=== PATIENT | female | born 1940 | race African-American/Black ===

== ENCOUNTER → 2017-01-05 | Outpatient (CLI) | payer MEDICARE ==
[2016-10-06 14:23] VITALS: BP 149/84
[~2017-01-05] MED LIST: ARAVA20 MG PO; ASCO100065 PO; CHOL500016 PO; CHRO400T6 PO; CYCL10TA2 PO; DOCU-27 PO; FERR325T58 PO; FOLI1TAB16 PO; GLIM1TAB2 PO; HYDR-2666 PO; HYDR-963 PO; LINA5TAB PO; LOSA25TA4 PO; METF10002 PO; OMEG300C PO; OXYC10TA PO; OXYC1TAB7 PO; vitamin b 6 PO
--- NOTE | 2017-01-05 16:41 | RAD ---
Right hip, 2 views, 01/05/2017: History: Severe pain No fracture or dislocation is identified. There is only minimal narrowing of the hip joint. The periarticular soft tissues are unremarkable. IMPRESSION: No acute right hip abnormality is detected.
== END | disposition home or self-care (01) ==
LOC: RAD 11:02
PROVIDERS: ATTEND Family Medicine
DX: M25.551 Pain in right hip (principal)
CPT/HCPCS: 73502

== ENCOUNTER → 2017-01-12 | Outpatient (CLI) | payer MEDICARE ==
[2016-10-06 14:23] VITALS: BP 149/84
[~2017-01-12] MED LIST changes: -ARAVA20 MG PO; +GADOBUTROL 7.5 MMOL/7.5 ML VIAL IV ONE; +LEFL20TA PO
--- NOTE | 2017-01-12 14:36 | KCIC ---
MR LUMBAR SPINE HISTORY:Reason For StudyReason: LUMBAR STENOSIS AND BACK PAIN / Spl. Instructions: Prev MR/CT on PACS / History: Prev surgery x3. Bilateral leg pain, chronic LBP. 6cc Gadavist COMPARISON: June 17, 2016 Technique: Sagittal T2, sagittal STIR, and sagittal T1-weighted images were obtained. Additional axial T1 and T2 weighted imaging was also performed. Post contrast T1 weighted images were performed after intravenous administration of gadolinium based contrast. FINDINGS: There has been extension of the posterior spinal fusion which now fuses L3-L5 previously L4-L5. There is no compression fracture or deformity. Bone marrow signal is normal apart from sclerotic endplate changes at L4-L5. The conus terminates normally at the level of L2. Visualized intra-abdominal contents demonstrates possible left nephrolithiasis. No abnormal intrathecal enhancement. At L5-S1 there are small facet joint effusions. The foramina are obscured by blooming artifact from the metallic pedicle screws but there is no evidence for high-grade stenosis. There is moderate right lateral recess stenosis from the facet hypertrophy. At L4-L5 there is advanced disc height loss and grade 1 anterolisthesis. There is a broad-based disc protrusion. The neural foramina arch cured by metallic artifact from the pedicle screws but there does appear to be bilateral neural foraminal stenosis. Correlate for possible L4 radiculopathy symptoms. At L3-L4 there is a broad-based disc protrusion causing mild central spinal stenosis. At L2-L3 there is moderate to severe central spinal stenosis from the combination of bilateral advanced facet arthropathy and broad-based disc bulge. Impression: - There has been extension the posterior spinal fusion now extending from L3-L5. - There is multilevel degenerative disc and facet disease causing varying degrees of central spinal and neural foraminal stenosis. This is most pronounced at L2-L3 where there is moderate to severe central spinal stenosis from a broad-based disc bulge and advanced facet arthropathy. Details per level as above. Electronically signed by: Bruno Christensen (Jan 12, 2017 14:35:21)
== END | disposition home or self-care (01) ==
LOC: KCIC MRI 11:36
PROVIDERS: ATTEND Neurological Surgery
DX: M51.26 Other intervertebral disc displacement, lumbar region (principal); M51.36 Other intervertebral disc degeneration, lumbar region; M46.96 Unspecified inflammatory spondylopathy, lumbar region; M12.88 Other specific arthropathies, not elsewhere classified, other specified site; Z98.1 Arthrodesis status
CPT/HCPCS: 72158; 82565; A9585

== ENCOUNTER → 2017-01-19 | Outpatient (CLI) | payer MEDICARE ==
[2016-10-06 14:23] VITALS: BP 149/84
[~2017-01-19] MED LIST changes: +ARAVA20 MG PO; +BACITRACIN 50,000 UNIT in IV NORMAL SALINE 1000ML BAG 1,000 ML IRR ONE; -GADOBUTROL 7.5 MMOL/7.5 ML VIAL IV ONE; -LEFL20TA PO
[2017-01-19 11:10] LABS: BASO # 0.1 x10^3/uL (0.0-0.2); BASO % 1 % (0-3); EOS % 2 % (0-3); HEMATOCRIT 28.5 % (36.0-47.0); HEMOGLOBIN 8.6 g/dL (12.0-15.5); LYMPH # 2.1 x10^3/uL (1.0-4.8); LYMPH % 31 % (24-48); MEAN CORPUSCULAR HEMOGLOBIN 25 pg (25-35); MEAN CORPUSCULAR HGB CONC 30 g/dL (31-37); MEAN CORPUSCULAR VOLUME 83 fL (79-100); MONO % 5 % (0-9); NEUT % 60 % (31-73); PLATELET COUNT 432 x10^3/uL (140-400); RED BLOOD COUNT 3.44 x10^6/uL (3.50-5.40); RED CELL DISTRIBUTION WIDTH 25.6 % (11.5-14.5); WHITE BLOOD COUNT 6.7 x10^3/uL (4.0-11.0)
[2017-01-19 11:28] LABS: ALBUMIN/GLOBULIN RATIO 0.6 (1.0-1.7); CALCIUM 9.8 mg/dL (8.5-10.1); CREATININE 0.8 mg/dL (0.6-1.0); GFR 84.8; TOTAL BILIRUBIN 0.2 mg/dL (0.2-1.0); TOTAL PROTEIN 7.8 g/dL (6.4-8.2)
[2017-01-19 13:40] LABS: PLT ESTIMATE INCREASED (ADEQUATE)
[2017-01-19 13:46] LABS: ANISOCYTOSIS MARKED
== END | disposition home or self-care (01) ==
LOC: SURGPAT 10:08
PROVIDERS: ATTEND Neurological Surgery
DX: Z01.812 Encounter for preprocedural laboratory examination (principal)
CPT/HCPCS: 36415; 80053; 85007; 85027; 87641

== ENCOUNTER 2017-01-20 07:07 | Inpatient (IN) | payer MEDICARE ==
[2017-01-20] VITALS (10 sets, daily range): BP systolic 96–129; BP diastolic 54–75
[~2017-01-20] VITALS: Ht 162.6 cm; Wt 71.2 kg
[~2017-01-20 07:07] MED LIST changes: -BACITRACIN 50,000 UNIT in IV NORMAL SALINE 1000ML BAG 1,000 ML IRR ONE; +BUPIVAC MPF-EPI 0.5%-1:200000 30 ML VIAL. ONE; +FENTANYL PF 100 MCG/2 ML VIAL. IV PRN; +GELATIN SPONGE SIZE 100. ONE; +IV RINGERS,LACTATED 1000ML 1,000 ML IV SCH; +KETOROLAC 60 MG/2 ML SYRINGE FOR OR. ONE; +LIDOCAINE 1% 1 ML SYRINGE. ID PRN; +ONDANSETRON PF 4 MG/2 ML VIAL. IV PRN; +PROCHLORPERAZINE 10 MG/2 ML VIAL. IV PRN; +THROMBIN 20,000 UNIT SPRAY.SYRN KIT TP ONE
[2017-01-20] MEDS ORDERED: DESFLURANE > 120 MINUTES IH ONE ×2 (07:55→10:46)
[2017-01-20] MEDS ORDERED: ONDANSETRON PF 4 MG/2 ML VIAL. ONE (07:55)
[2017-01-20] MEDS ORDERED: LIDOCAINE 2% 100 MG/5 ML DISP.SYRIN. ONE (07:55)
[2017-01-20] MEDS ORDERED: DEXAMETHASONE SOD PHOS 20 MG/5 ML VIAL. ONE (07:55)
[2017-01-20] MEDS ORDERED: MINERAL OIL/PETROLATUM,WHITE OPHTH OINT 3.5GM TUBE. ONE (07:55)
[2017-01-20] MEDS ORDERED: REMIFENTANIL 2 MG VIAL. IV ONE (07:55)
[2017-01-20] MEDS ORDERED: FENTANYL PF 100 MCG/2 ML VIAL. ONE (07:55)
[2017-01-20] MEDS ORDERED: 0.9 % SODIUM CHLORIDE 50 ML VIAL. IJ ONE (07:55)
[2017-01-20] MEDS ORDERED: PROPOFOL 20 ML IV ONE (07:55)
[2017-01-20] MEDS ORDERED: PROPOFOL 0 ML IV ONE (07:55)
[2017-01-20] MEDS ORDERED: ROCURONIUM 50 MG/5 ML VIAL. ONE (07:56)
[2017-01-20] MEDS ORDERED: PHENYLEPHRINE in 0.9% NACL PF 1 MG/10 ML DISP.SYRIN. IV ONE ×2 (09:37→10:10)
[2017-01-20] MEDS ORDERED: BACITRACIN 50,000 UNIT in IV NORMAL SALINE 1000ML BAG 1,000 ML IRR ONE (10:00)
[2017-01-20] MEDS ORDERED: EPHEDRINE PF IN SALINE 50 MG/5 ML DISP.SYRIN. IV ONE (10:26)
[2017-01-20] MEDS ORDERED: PROPOFOL 50 ML IV ONE (10:51)
--- NOTE | 2017-01-20 11:48 | HP ---
ADMIT DATE: 01/20/2017 HISTORY OF PRESENT ILLNESS: The patient is a pleasant 76-year-old who has undergone 3 surgeries in her lumbar spine. Laminectomy at L3-L4, laminectomy and fusion L4-L5 and an extension of her fusion from L3-L5. After the surgery, she did well for a time and then she worsened. Currently, she is experiencing very significant lower back pain on the right side which she says is a stabbing pain. On the left side and her lower back, she notes sharp discomfort. She notices pain which radiates into the anterior thighs and says it feels like her thighs are ____ when she stands and walks. She rates her pain as 10/10 with standing and walking. Lying and sitting gives her significant relief. She is taking oxycodone and Flexeril to help control her pain. PAST MEDICAL HISTORY: Diabetes, kidney stones, shingles. PAST SURGICAL HISTORY: Lumbar laminectomy L3-L4, L4-L5 ____ 2012; 2010 a lumbar laminectomy L3-L4, L4-L5; February 2016, lumbar fusion L4-L5; July 2016, removal of hardware L4-L5, lumbar laminectomy L3-L4, placement of hardware L3 through L5. FAMILY HISTORY: No family history noted. SOCIAL HISTORY: She is single. Denies substance abuse. Denies tobacco use. ALLERGIES: TO IV CONTRAST DYE AND CODEINE. CURRENT MEDICATIONS: Oxycodone, cyclobenzaprine, Valium, glimepiride, metformin, Arava, vitamin C, iron, fish oil, vitamin B6. REVIEW OF SYSTEMS: A 12-point review of systems was obtained and is noncontributory except for that mentioned above. PHYSICAL EXAMINATION: NEUROSURGERY EXAMINATION: GENERAL APPEARANCE: Alert, pleasant, in no acute distress. HEENT: Normocephalic, atraumatic. SKIN: Warm and dry. MUSCULOSKELETAL: Lumbar paraspinal muscle bulk is normal, restricted range of motion of lumbar spine, [id number] tenderness of lower lumbar spine with palpation, normal range of motion of the lower extremities bilaterally. EXTREMITIES: No clubbing, cyanosis, or edema. NEUROLOGIC: Alert and oriented x 3, normal recent and remote memory, strength 5/5 in bilateral lower extremities, sensory was intact to light touch in the lower extremities bilaterally except for decrease in the anterior thighs bilaterally, reflexes were absent at the knees and ankles, negative straight leg raising bilaterally, forward stooped gait. IMAGING REVIEWED: I reviewed a lumbar MRI scan done recently. There appears to have been progression of the lumbar spinal stenosis at L2-L3. She is developing increasing stenosis at L2-L3. She does have excellent alignment at this level. PLAN: At this point, I think the most prudent course would be to perform a laminectomy at this level. I explained in the future she may require an instrumented fusion. I discussed surgery with her in detail. I spoke about the expected postoperative course. She would like to go ahead. We will make the arrangements. We did also make some adjustments to her pain medications because her pain remains severe. TAYLOR SIERRA MD DR: ALBERT/ayleen JOB#: [id number] / [id number]
[2017-01-20] MEDS ORDERED: 0.9 % SODIUM CHLORIDE 10 ML DISP.SYRIN. IV PRN (12:15)
[2017-01-20] MEDS ORDERED: DIPHENHYDRAMINE 50 MG/ML VIAL IV PRN (12:15)
[2017-01-20] MEDS ORDERED: ZOLPIDEM 5 MG TABLET. PO PRN (12:15)
[2017-01-20] MEDS ORDERED: ACETAMINOPHEN 325 MG TABLET. PO PRN (12:15)
[2017-01-20] MEDS ORDERED: CYCLOBENZAPRINE 10 MG TABLET. PO PRN (12:15)
[2017-01-20] MEDS ORDERED: NALOXONE 0.4 MG/ML VIAL. IV PRN (12:15)
[2017-01-20] MEDS ORDERED: DIPHENHYDRAMINE HCL 25 MG CAPSULE PO PRN (12:15)
[2017-01-20] MEDS: FENTANYL PF 100 MCG/2 ML VIAL. IV PRN ×6 (12:32→18:42)
[2017-01-20] MEDS: MORPHINE SULFATE 2 MG/ML DISP.SYRIN. IV PRN ×2 (12:53→13:02)
[2017-01-20] MEDS: HYDROMORPHONE 2 MG/ML VIAL. IV PRN ×2 (13:13→13:24)
[2017-01-20] MEDS: CEFAZOLIN SODIUM 1 GM in IV NORMAL SALINE 50ML 50 ML IV SCH ×2 (14:31→21:09)
[2017-01-20] MEDS ORDERED: POTASSIUM CL 20MEQ-0.45% NACL 1,000 ML IV SCH (15:00)
[2017-01-20] MEDS: METFORMIN 1,000 MG TABLET PO SCH (17:00)
[2017-01-20] MEDS: GLIMEPIRIDE 2 MG TABLET PO SCH (17:00)
[2017-01-20] MEDS: MORPHINE ER 30 MG TABLET.ER PO SCH ×2 (17:30→21:11)
[2017-01-20] MEDS: DOCUSATE SODIUM 100 MG CAPSULE PO SCH (21:09)
[2017-01-21] MEDS: FENTANYL PF 100 MCG/2 ML VIAL. IV PRN ×8 (00:11→21:22)
[2017-01-21 03:00] VITALS: BP 118/55
[2017-01-21] MEDS: CEFAZOLIN SODIUM 1 GM in IV NORMAL SALINE 50ML 50 ML IV SCH (05:51)
[2017-01-21] MEDS: OXYCODONE IR 5 MG TABLET. PO PRN ×3 (05:59→17:15)
[2017-01-21 07:00] VITALS: BP 99/79
[2017-01-21] MEDS: LEFLUNOMIDE 10 MG TABLET. PO SCH (08:37)
[2017-01-21] MEDS: OMEGA-3 FATTY ACIDS/FISH OIL 1,000 MG CAPSULE. PO SCH (08:37)
[2017-01-21] MEDS: GLIMEPIRIDE 2 MG TABLET PO SCH ×2 (08:37→17:15)
[2017-01-21] MEDS: FERROUS SULFATE 325 MG TABLET PO SCH (08:38)
[2017-01-21] MEDS: MORPHINE ER 30 MG TABLET.ER PO SCH ×2 (08:38→21:21)
[2017-01-21] MEDS: FOLIC ACID 1 MG TABLET PO SCH (08:38)
[2017-01-21] MEDS: METFORMIN 1,000 MG TABLET PO SCH ×2 (08:38→17:15)
[2017-01-21] MEDS: ASCORBIC ACID 500 MG TABLET PO SCH (08:38)
[2017-01-21] MEDS: DOCUSATE SODIUM 100 MG CAPSULE PO SCH ×2 (08:38→21:21)
[2017-01-21] MEDS: CHOLECALCIFEROL (VITAMIN D3) 1,000 UNIT TABLET PO SCH (08:39)
[2017-01-21] MEDS ORDERED: CHROMIUM AMINO ACID CHELATE PO SCH (09:00)
[2017-01-21] MEDS: LOSARTAN POTASSIUM 25 MG TABLET. PO SCH (09:00)
[2017-01-21 11:00] VITALS: BP 132/69
[2017-01-21 15:00] VITALS: BP 137/69
[2017-01-21 19:00] VITALS: BP 150/67
--- NOTE | 2017-01-21 22:55 | PDOC ---
PROGRESS NOTES Subjective Subjective patient seen at 1300 POD #1 leg pain improved, c/o incisional pain Objective Objective Vital Signs Date Time Temp Pulse Resp B/P Pulse Ox O2 Delivery O2 Flow Rate FiO2 01/21/17 19:00 98.5 86 18 150/67 95 Room Air 98.5 01/21/17 18:15 2.0 Intake and Output 01/21/17 07:00 Intake Total 2360 ml Output Total 650 ml Balance 1710 ml Intake Oral 260 ml IV Total 2100 ml Output Urine Total 600 ml Estimated Blood Loss 50 ml # Voids 2 Physical Exam General: Alert, Oriented X3, Cooperative Neuro: Other (MOSS, LE strength normal) Skin: Other (dressing intact, dry, flat) Assessment Assessment Problems Medical Problems: (1) Lumbar stenosis Status: Acute Plan Plan of Care encouraged increased activity as tolerated continue pain medication PT Comment Review of Relevant I have reviewed the following items franco (where applicable) has been applied. Labs Laboratory Tests Test 01/20/17 08:00 01/20/17 12:26 Glucose (Fingerstick) 99mg/dL (70-99) 177mg/dL (70-99) Medications Current Medications Ondansetron HCl (Zofran) 4 mg PRN Q6HRS PRN IV Nausea; Start 01/20/17 at 07:00; Stop 01/20/17 at 19:00; Status DC Fentanyl Citrate (Fentanyl 2ml Vial) 25 mcg PRN Q5MIN PRN IV MILD PAIN; Start 01/20/17 at 07:00; Stop 01/20/17 at 19:00; Status DC Fentanyl Citrate (Fentanyl 2ml Vial) 50 mcg PRN Q5MIN PRN IV MODERATE PAIN Last administered on 01/20/17 14:30; Start 01/20/17 at 07:00; Stop 01/20/17 at 19: 00; Status DC Morphine Sulfate 1 mg 1 mg PRN Q10MIN PRN IV SEVERE PAIN Last administered on 13:02; Start 01/20/17 at 07:00; Stop 01/20/17 at 19:00; Status DC Lactated Ringer's (Iv Lactated Ringers) 1,000 ml @ 0 mls/hr Q0M IV ; Start 01/20 at 07:00; Stop 01/20/17 at 18:59; Status DC Lidocaine HCl 2 ml 1X PRN PRN ID IV START Last administered on 01/20/17 08:10; Start 01/20/17 at 07:00; Stop 01/20/17 at 19:00; Status DC Hydromorphone HCl (Dilaudid) 0.5 mg PRN Q10MIN PRN IV SEVERE PAIN, Second choice Last administered on 01/20/17 13:24; Start 01/20/17 at 07:00; Stop at 19:00; Status DC Prochlorperazine Edisylate (Compazine) 5 mg PACU PRN PRN IV NAUSEA Last administered on 01/20/17 12:52; Start 01/20/17 at 07:00; Stop 01/20/17 at 19:00; Status DC Bupivacaine HCl/ Epinephrine Bitart (Sensorcain-Mpf Epi 0.5%-1:[id number]) 30 ml STK -MED ONCE .ROUTE Last administered on 01/20/17 09:36; Start 01/20/17 at 06:59; Stop 01/20/17 at 07:00; Status DC Gelatin (Gelfoam Size 100) 1 each STK-MED ONCE .ROUTE Last administered on 01/20 09:36; Start 01/20/17 at 06:59; Stop 01/20/17 at 07:00; Status DC Ketorolac Tromethamine (Toradol For Or Only) 60 mg STK-MED ONCE .ROUTE Last administered on 01/20/17 09:36; Start 01/20/17 at 06:59; Stop 01/20/17 at 07:00; Status DC Thrombin 20,000 unit STK-MED ONCE TP Last administered on 01/20/17 09:36; Start 01/20/17 at 06:59; Stop 01/20/17 at 07:00; Status DC Dexamethasone Sodium Phosphate (Decadron) 20 mg STK-MED ONCE .ROUTE ; Start 01/20 at 07:55; Stop 01/20/17 at 07:56; Status DC Ondansetron HCl 4 mg 4 mg STK-MED ONCE .ROUTE ; Start 01/20/17 at 07:55; Stop 01/20/17 at 07:56; Status DC Propofol 0 ml @ As Directed STK-MED ONCE IV ; Start 01/20/17 at 07:55; Stop at 07:56; Status DC Propofol (Diprivan) 20 ml @ As Directed STK-MED ONCE IV ; Start 01/20/17 at 07:55 ; Stop 01/20/17 at 07:56; Status DC Lidocaine HCl 100 mg STK-MED ONCE .ROUTE ; Start 01/20/17 at 07:55; Stop 01/20/17 at 07:56; Status DC Multi-Ingred Cream/Lotion/Oil/ Oint (Artificial Tears Eye Oint) 7 neno STK-MED ONCE .ROUTE ; Start 01/20/17 at 07:55; Stop 01/20/17 at 07:56; Status DC Sodium Chloride (Sodium Chloride) 50 ml STK-MED ONCE IJ ; Start 01/20/17 at 07:55 ; Stop 01/20/17 at 07:56; Status DC Desflurane (Suprane) 90 ml STK-MED ONCE IH ; Start 01/20/17 at 07:55; Stop at 07:56; Status DC Fentanyl Citrate (Fentanyl 2ml Vial) 100 mcg STK-MED ONCE .ROUTE ; Start at 07:55; Stop 01/20/17 at 07:56; Status DC Remifentanil HCl (Ultiva) 2 mg STK-MED ONCE IV ; Start 01/20/17 at 07:55; Stop at 07:56; Status DC Rocuronium Banks (Zemuron) 50 mg STK-MED ONCE .ROUTE ; Start 01/20/17 at 07:56 ; Stop 01/20/17 at 07:57; Status DC Phenylephrine HCl 1 mg STK-MED ONCE IV ; Start 01/20/17 at 09:37; Stop 01/20/17 at 09:38; Status DC Phenylephrine HCl 1 mg 1 mg STK-MED ONCE IV ; Start 01/20/17 at 10:10; Stop at 10:11; Status DC Bacitracin/Sodium Chloride (Iv Sodium Chloride 0.9% 1000ml Bag) 1,000 ml @ 1, 000 mls/hr 1X PERIOP ONCE IRR Last administered on 01/20/17t 09:36; Start at 10:00; Stop 01/20/17 at 10:59; Status DC Ephedrine Sulfate 50 mg STK-MED ONCE IV ; Start 01/20/17 at 10:26; Stop 01/20/17 at 10:27; Status DC Desflurane 90 ml 90 ml STK-MED ONCE IH ; Start 01/20/17 at 10:46; Stop 01/20/17 at 10:47; Status DC Propofol (Diprivan) 50 ml @ As Directed STK-MED ONCE IV ; Start 01/20/17 at 10:51 ; Stop 01/20/17 at 10:52; Status DC Acetaminophen (Tylenol) 650 mg PRN Q6HRS PRN PO MILD PAIN / TEMP; Start at 12:15 Diphenhydramine HCl (Benadryl) 25 mg PRN Q6HRS PRN PO ITCHING; Start 01/20/17 at 12:15 Diphenhydramine HCl (Benadryl) 25 mg PRN Q6HRS PRN IV ITCHING; Start 01/20/17 at 12:15 Zolpidem Tartrate (Ambien) 5 mg PRN QHS PRN PO INSOMNIA, MAY REPEAT IN 1HR; Start 01/20/17 at 12:15 Naloxone HCl (Narcan) 0.1 mg PRN Q2MIN PRN IV ADMIN; Start 01/20/17 at 12:15 Sodium Chloride 3 ml 3 ml QSHIFT PRN IV AFTER MEDS AND BLOOD DRAWS; Start at 12:15 Potassium Chloride/Sodium Chloride 1,000 ml @ 75 mls/hr [id number] IV Last administered on 01/20/17 14:31; Start 01/20/17 at 15:00; Stop 01/21/17 at 01:13; Status DC Cefazolin Sodium/ Sodium Chloride (Ancef/Iv Sodium Chloride 0.9% 50ml) 50 ml @ 100 mls/hr Q8H IV Last administered on 01/21/17 05:51; Start 01/20/17 at 14:00; Stop 01/21/17 at 06:29; Status DC Fentanyl Citrate (Fentanyl 2ml Vial) 50 mcg PRN Q1HR PRN IV PAIN Last administered on 01/21/17 21:22; Start 01/20/17 at 12:15 Cyclobenzaprine HCl (Flexeril) 10 mg PRN TID PRN PO MUSCLE SPASMS; Start at 12:15 Docusate Sodium (Colace) 100 mg BID PO Last administered on 01/21/17 21:21; Start 01/20/17 at 21:00 Ferrous Sulfate (Feosol) 325 mg DAILY PO Last administered on 01/21/17 08:38; Start 01/21/17 at 09:00 Folic Acid (Folic Acid) 0.5 mg DAILY PO Last administered on 01/21/17 08:38; Start 01/21/17 at 09:00 Leflunomide (Arava) 20 mg DAILY PO Last administered on 01/21/17 08:37; Start 01/21/17 at 09:00 Losartan Potassium (Cozaar) 25 mg DAILY PO Last administered on 01/21/17 09:00 ; Start 01/21/17 at 09:00 Metformin HCl (Glucophage) 1,000 mg BIDWMEALS PO Last administered on 01/21/17 17:15; Start 01/20/17 at 17:00 Ascorbic Acid (Vitamin C) 1,000 mg DAILY PO Last administered on 01/21/17 08:38 ; Start 01/21/17 at 09:00 Vitamin D (Vitamin D3) 2,000 unit DAILY PO Last administered on 01/21/17 08:39 ; Start 01/21/17 at 09:00 Non-Formulary Medication 1,000 mcg DAILY PO SUPPLEMENT; Start 01/21/17 at 09:00; Status UNV Glimepiride (Amaryl) 2 mg BIDWMEALS PO Last administered on 01/21/17 17:15; Start 01/20/17 at 17:00 Fish Oil (Fish Oil) 1,000 mg DAILY PO Last administered on 01/21/17 08:37; Start 01/21/17 at 09:00 Oxycodone HCl (Roxicodone) 10 mg PRN Q4HRS PRN PO PAIN Last administered on 01/21 17:15; Start 01/20/17 at 13:15 Morphine Sulfate (Ms Contin) 30 mg BID PO Last administered on 01/21/17 21:21; Start 01/20/17 at 17:30 Active Scripts Active Oxycodone Hcl 10 Mg Tablet 10 Mg PO Q4-6HRS PRN Colace (Docusate Sodium) 100 Mg Capsule 100 Mg PO BID Cyclobenzaprine Hcl 10 Mg Tablet 10 Mg PO PRN TID PRN Reported Vitamin C (Ascorbic Acid) 1,000 Mg Tab.chew 1,000 Mg PO DAILY Not taken while in hosp. May resume at home as directed. Iron Supplement (Ferrous Sulfate) 325 Mg Tablet 65 Mg PO DAILY LAST DOSE THIS AM NEXT DOSE TOMORROW AM Vitamin D3 (Cholecalciferol (Vitamin D3)) 5,000 Unit Tablet 2,000 Mg PO DAILY Not taken while in hosp. May resume ast home as directed. Folic Acid 1 Mg Tablet 400 Mg PO DAILY LAST DOSE THIS AM NEXT DOSE TOMORROW AM Chromium (Chromium Amino Acid Chelate) 400 Mcg Tablet 1,000 Mcg PO DAILY Not taken while in hosp. May resume at home as directed. [vitamin b 6] 1,000 Mg PO PRN Not given while in hosp. May resume at home as directed. MA Y RESUME WHEN READY Fish Oil ([place]-3 Fatty Acids) 300 Mg Capsule 1,200 Mg PO DAILY NOT GIVEN IN THE HOSPITAL MAY RESUME WHEN HOME DIRECTED Glimepiride 1 Mg Tablet 2 Mg PO BID LAST DOSE GIVEN: DATE:08-19-16 TIME:7:30 a.m. NEXT DOSE DUE: DATE:08-19-16 TIME:6:30 p.m. Metformin Hcl 1,000 Mg Tablet 1,000 Mg PO BID LAST DOSE GIVEN: DATE:08-19-16 TIME:8:30 a.m. NEXT DOSE DUE: DATE:08-19-16 TIME:5:00 p.m. Arava (Leflunomide) 20 Mg Tablet 20 Mg PO DAILY LAST DOSE THIS AM NEXT DOSE TOMORROW AM Losartan Potassium 25 Mg Tablet 25 Mg PO DAILY Not taken in hosp. due to low blood pressure may resume at home as directed. Vitals/I & O Vital Sign - Last 24 Hours 01/20/17 01/21/17 01/21/17 01/21/17 23:41 00:11 03:00 03:08 Temp 98.1 97.7 98.1 97.7 Pulse 84 79 Resp 18 20 B/P 129/75 118/55 Pulse Ox 99 98 O2 Delivery Nasal Cannula Nasal Cannula Nasal Cannula Nasal Cannula O2 Flow Rate 2.0 2.0 301/21/17 01/21/17 01/21/17 05:52 05:59 07:00 08:00 Temp 98.1 98.1 Pulse 78 Resp 18 B/P 99/79 Pulse Ox 100 O2 Delivery Nasal Cannula Nasal Cannula Room Air Nasal Cannula O2 Flow Rate 2.0 2.0 01/21/17 01/21/17 01/21/17 01/21/17 08:38 08:40 09:00 09:58 Pulse 81 Resp 18 16 B/P 132/64 Pulse Ox 100 100 100 O2 Delivery Nasal Cannula Nasal Cannula Nasal Cannula O2 Flow Rate 2.0 2.0 2.0 01/21/17 01/21/17 01/21/17 01/21/17 10:44 11:00 12:38 13:53 Temp 98.0 98.0 Pulse 82 Resp 16 18 16 18 B/P 132/69 Pulse Ox 100 96 96 96 O2 Delivery Nasal Cannula Nasal Cannula Nasal Cannula Room Air O2 Flow Rate 2.0 2.0 2.0 2.0 01/21/17 01/21/17 01/21/17 01/21/17 15:00 17:15 17:18 17:48 Temp 98.6 98.6 Pulse 90 Resp 18 16 16 16 B/P 137/69 Pulse Ox 95 95 95 95 O2 Delivery Room Air Nasal Cannula Nasal Cannula Nasal Cannula O2 Flow Rate 2.0 2.0 2.0 01/21/17 01/21/17 18:15 19:00 Temp 98.5 98.5 Pulse 86 Resp 16 18 B/P 150/67 Pulse Ox 95 95 O2 Delivery Nasal Cannula Room Air O2 Flow Rate 2.0 Intake and Output 01/20/17 01/20/17 01/21/17 15:00 23:00 07:00 Intake Total 1800 ml 350 ml 210 ml Output Total 50 ml 100 ml 500 ml Balance 1750 ml 250 ml -290 ml TAYLOR SIERRA MD Jan 21, 2017 22:55
[2017-01-21 23:00] VITALS: BP 136/67
[2017-01-22] MEDS: FENTANYL PF 100 MCG/2 ML VIAL. IV PRN ×3 (01:35→09:11)
[2017-01-22 03:00] VITALS: BP 141/63
[2017-01-22 07:00] VITALS: BP 129/64
[2017-01-22] MEDS: DOCUSATE SODIUM 100 MG CAPSULE PO SCH (09:00)
[2017-01-22] MEDS: CHOLECALCIFEROL (VITAMIN D3) 1,000 UNIT TABLET PO SCH (09:01)
[2017-01-22] MEDS: LOSARTAN POTASSIUM 25 MG TABLET. PO SCH (09:02)
[2017-01-22] MEDS: GLIMEPIRIDE 2 MG TABLET PO SCH (09:02)
[2017-01-22] MEDS: OMEGA-3 FATTY ACIDS/FISH OIL 1,000 MG CAPSULE. PO SCH (09:02)
[2017-01-22] MEDS: LEFLUNOMIDE 10 MG TABLET. PO SCH (09:02)
[2017-01-22] MEDS: ASCORBIC ACID 500 MG TABLET PO SCH (09:02)
[2017-01-22] MEDS: METFORMIN 1,000 MG TABLET PO SCH (09:02)
[2017-01-22] MEDS: MORPHINE ER 30 MG TABLET.ER PO SCH (09:03)
[2017-01-22] MEDS: FOLIC ACID 1 MG TABLET PO SCH (09:03)
[2017-01-22] MEDS: FERROUS SULFATE 325 MG TABLET PO SCH (09:03)
[2017-01-22 11:00] VITALS: BP 150/76
--- NOTE | 2017-01-22 11:56 | DISCH ---
DISCHARGE INSTRUCTIONS Condition on Discharge Condition on Discharge: Stable Activity After Discharge Activity Instructions for Disc: Activity as tolerated, Avoid exertion Bathing Instructions: Shower-keep dressing dry Lifting Instructions after Dis: No heavy lifting, No pulling or pushing, Do not lift >10 pounds Exercise Instruction after Dis: Walk 10 min, 3 x per day Driving Instructions after Dis: No driving for 2 weeks Diet after Discharge Additional Diet Restrictions: resume home diet Wound Incision Care Wound/Incision Care: Ice to area for comfort Other wound/incision instructi: may remove dressing when dry then may shower- no soaking Contacting the [facility] after DC Call your doctor for: Concerns you may have Follow-Up Follow up with: Dr. Sierra in 2 weeks [phone] TAYLOR SIERRA MD Jan 22, 2017 11:56
--- NOTE | 2017-01-22 12:05 | PDOC ---
PROGRESS NOTES Subjective Subjective back pain when up wants to go home Objective Objective Vital Signs Date Time Temp Pulse Resp B/P Pulse Ox O2 Delivery O2 Flow Rate FiO2 01/22/17 11:00 98.3 89 16 150/76 99 Room Air 98.3 01/22/17 08:00 2.0 Intake and Output 01/22/17 07:00 Intake Total 200 ml Output Total 2450 ml Balance -2250 ml Intake Oral 200 ml Output Urine Total 2450 ml Physical Exam General: Alert, Oriented X3, Cooperative Neuro: Normal speech, Other (strength normal in BLE) Psych/Mental Status: Mental status NL Skin: Other (dressing intact) Assessment Assessment Problems Medical Problems: (1) Lumbar stenosis Status: Acute Plan Plan of Care dc home f/u 2 weeks Comment Review of Relevant I have reviewed the following items franco (where applicable) has been applied. Labs Laboratory Tests Test 01/20/17 12:26 Glucose (Fingerstick) 177mg/dL (70-99) Medications Current Medications Ondansetron HCl (Zofran) 4 mg PRN Q6HRS PRN IV Nausea; Start 01/20/17 at 07:00; Stop 01/20/17 at 19:00; Status DC Fentanyl Citrate (Fentanyl 2ml Vial) 25 mcg PRN Q5MIN PRN IV MILD PAIN; Start 01/20/17 at 07:00; Stop 01/20/17 at 19:00; Status DC Fentanyl Citrate (Fentanyl 2ml Vial) 50 mcg PRN Q5MIN PRN IV MODERATE PAIN Last administered on 01/20/17 14:30; Start 01/20/17 at 07:00; Stop 01/20/17 at 19: 00; Status DC Morphine Sulfate 1 mg 1 mg PRN Q10MIN PRN IV SEVERE PAIN Last administered on 13:02; Start 01/20/17 at 07:00; Stop 01/20/17 at 19:00; Status DC Lactated Ringer's (Iv Lactated Ringers) 1,000 ml @ 0 mls/hr Q0M IV ; Start 01/20 at 07:00; Stop 01/20/17 at 18:59; Status DC Lidocaine HCl 2 ml 1X PRN PRN ID IV START Last administered on 01/20/17 08:10; Start 01/20/17 at 07:00; Stop 01/20/17 at 19:00; Status DC Hydromorphone HCl (Dilaudid) 0.5 mg PRN Q10MIN PRN IV SEVERE PAIN, Second choice Last administered on 01/20/17 13:24; Start 01/20/17 at 07:00; Stop at 19:00; Status DC Prochlorperazine Edisylate (Compazine) 5 mg PACU PRN PRN IV NAUSEA Last administered on 01/20/17 12:52; Start 01/20/17 at 07:00; Stop 01/20/17 at 19:00; Status DC Bupivacaine HCl/ Epinephrine Bitart (Sensorcain-Mpf Epi 0.5%-1:[id number]) 30 ml STK -MED ONCE .ROUTE Last administered on 01/20/17 09:36; Start 01/20/17 at 06:59; Stop 01/20/17 at 07:00; Status DC Gelatin (Gelfoam Size 100) 1 each STK-MED ONCE .ROUTE Last administered on 01/20 09:36; Start 01/20/17 at 06:59; Stop 01/20/17 at 07:00; Status DC Ketorolac Tromethamine (Toradol For Or Only) 60 mg STK-MED ONCE .ROUTE Last administered on 01/20/17 09:36; Start 01/20/17 at 06:59; Stop 01/20/17 at 07:00; Status DC Thrombin 20,000 unit STK-MED ONCE TP Last administered on 01/20/17 09:36; Start 01/20/17 at 06:59; Stop 01/20/17 at 07:00; Status DC Dexamethasone Sodium Phosphate (Decadron) 20 mg STK-MED ONCE .ROUTE ; Start 01/20 at 07:55; Stop 01/20/17 at 07:56; Status DC Ondansetron HCl 4 mg 4 mg STK-MED ONCE .ROUTE ; Start 01/20/17 at 07:55; Stop 01/20/17 at 07:56; Status DC Propofol 0 ml @ As Directed STK-MED ONCE IV ; Start 01/20/17 at 07:55; Stop at 07:56; Status DC Propofol (Diprivan) 20 ml @ As Directed STK-MED ONCE IV ; Start 01/20/17 at 07:55 ; Stop 01/20/17 at 07:56; Status DC Lidocaine HCl 100 mg STK-MED ONCE .ROUTE ; Start 01/20/17 at 07:55; Stop 01/20/17 at 07:56; Status DC Multi-Ingred Cream/Lotion/Oil/ Oint (Artificial Tears Eye Oint) 7 neno STK-MED ONCE .ROUTE ; Start 01/20/17 at 07:55; Stop 01/20/17 at 07:56; Status DC Sodium Chloride (Sodium Chloride) 50 ml STK-MED ONCE IJ ; Start 01/20/17 at 07:55 ; Stop 01/20/17 at 07:56; Status DC Desflurane (Suprane) 90 ml STK-MED ONCE IH ; Start 01/20/17 at 07:55; Stop at 07:56; Status DC Fentanyl Citrate (Fentanyl 2ml Vial) 100 mcg STK-MED ONCE .ROUTE ; Start at 07:55; Stop 01/20/17 at 07:56; Status DC Remifentanil HCl (Ultiva) 2 mg STK-MED ONCE IV ; Start 01/20/17 at 07:55; Stop at 07:56; Status DC Rocuronium Donnellson (Zemuron) 50 mg STK-MED ONCE .ROUTE ; Start 01/20/17 at 07:56 ; Stop 01/20/17 at 07:57; Status DC Phenylephrine HCl 1 mg STK-MED ONCE IV ; Start 01/20/17 at 09:37; Stop 01/20/17 at 09:38; Status DC Phenylephrine HCl 1 mg 1 mg STK-MED ONCE IV ; Start 01/20/17 at 10:10; Stop at 10:11; Status DC Bacitracin/Sodium Chloride (Iv Sodium Chloride 0.9% 1000ml Bag) 1,000 ml @ 1, 000 mls/hr 1X PERIOP ONCE IRR Last administered on 01/20/17t 09:36; Start at 10:00; Stop 01/20/17 at 10:59; Status DC Ephedrine Sulfate 50 mg STK-MED ONCE IV ; Start 01/20/17 at 10:26; Stop 01/20/17 at 10:27; Status DC Desflurane 90 ml 90 ml STK-MED ONCE IH ; Start 01/20/17 at 10:46; Stop 01/20/17 at 10:47; Status DC Propofol (Diprivan) 50 ml @ As Directed STK-MED ONCE IV ; Start 01/20/17 at 10:51 ; Stop 01/20/17 at 10:52; Status DC Acetaminophen (Tylenol) 650 mg PRN Q6HRS PRN PO MILD PAIN / TEMP; Start at 12:15 Diphenhydramine HCl (Benadryl) 25 mg PRN Q6HRS PRN PO ITCHING; Start 01/20/17 at 12:15 Diphenhydramine HCl (Benadryl) 25 mg PRN Q6HRS PRN IV ITCHING; Start 01/20/17 at 12:15 Zolpidem Tartrate (Ambien) 5 mg PRN QHS PRN PO INSOMNIA, MAY REPEAT IN 1HR; Start 01/20/17 at 12:15 Naloxone HCl (Narcan) 0.1 mg PRN Q2MIN PRN IV ADMIN; Start 01/20/17 at 12:15 Sodium Chloride 3 ml 3 ml QSHIFT PRN IV AFTER MEDS AND BLOOD DRAWS; Start at 12:15 Potassium Chloride/Sodium Chloride 1,000 ml @ 75 mls/hr [id number] IV Last administered on 01/20/17 14:31; Start 01/20/17 at 15:00; Stop 01/21/17 at 01:13; Status DC Cefazolin Sodium/ Sodium Chloride (Ancef/Iv Sodium Chloride 0.9% 50ml) 50 ml @ 100 mls/hr Q8H IV Last administered on 01/21/17 05:51; Start 01/20/17 at 14:00; Stop 01/21/17 at 06:29; Status DC Fentanyl Citrate (Fentanyl 2ml Vial) 50 mcg PRN Q1HR PRN IV PAIN Last administered on 01/22/17 09:11; Start 01/20/17 at 12:15 Cyclobenzaprine HCl (Flexeril) 10 mg PRN TID PRN PO MUSCLE SPASMS; Start at 12:15 Docusate Sodium (Colace) 100 mg BID PO Last administered on 01/21/17 21:21; Start 01/20/17 at 21:00 Ferrous Sulfate (Feosol) 325 mg DAILY PO Last administered on 01/22/17 09:03; Start 01/21/17 at 09:00 Folic Acid (Folic Acid) 0.5 mg DAILY PO Last administered on 01/22/17 09:03; Start 01/21/17 at 09:00 Leflunomide (Arava) 20 mg DAILY PO Last administered on 01/22/17 09:02; Start 01/21/17 at 09:00 Losartan Potassium (Cozaar) 25 mg DAILY PO Last administered on 01/22/17 09:02 ; Start 01/21/17 at 09:00 Metformin HCl (Glucophage) 1,000 mg BIDWMEALS PO Last administered on 01/22/17 09:02; Start 01/20/17 at 17:00 Ascorbic Acid (Vitamin C) 1,000 mg DAILY PO Last administered on 01/22/17 09:02 ; Start 01/21/17 at 09:00 Vitamin D (Vitamin D3) 2,000 unit DAILY PO Last administered on 01/22/17 09:01 ; Start 01/21/17 at 09:00 Non-Formulary Medication 1,000 mcg DAILY PO SUPPLEMENT; Start 01/21/17 at 09:00; Status UNV Glimepiride (Amaryl) 2 mg BIDWMEALS PO Last administered on 01/22/17 09:02; Start 01/20/17 at 17:00 Fish Oil (Fish Oil) 1,000 mg DAILY PO Last administered on 01/22/17 09:02; Start 01/21/17 at 09:00 Oxycodone HCl (Roxicodone) 10 mg PRN Q4HRS PRN PO PAIN Last administered on 01/21 17:15; Start 01/20/17 at 13:15 Morphine Sulfate (Ms Contin) 30 mg BID PO Last administered on 01/22/17 09:03; Start 01/20/17 at 17:30 Active Scripts Active Oxycodone Hcl 10 Mg Tablet 10 Mg PO Q4-6HRS PRN Colace (Docusate Sodium) 100 Mg Capsule 100 Mg PO BID Cyclobenzaprine Hcl 10 Mg Tablet 10 Mg PO PRN TID PRN Reported Vitamin C (Ascorbic Acid) 1,000 Mg Tab.chew 1,000 Mg PO DAILY Not taken while in hosp. May resume at home as directed. Iron Supplement (Ferrous Sulfate) 325 Mg Tablet 65 Mg PO DAILY LAST DOSE THIS AM NEXT DOSE TOMORROW AM Vitamin D3 (Cholecalciferol (Vitamin D3)) 5,000 Unit Tablet 2,000 Mg PO DAILY Not taken while in hosp. May resume ast home as directed. Folic Acid 1 Mg Tablet 400 Mg PO DAILY LAST DOSE THIS AM NEXT DOSE TOMORROW AM Chromium (Chromium Amino Acid Chelate) 400 Mcg Tablet 1,000 Mcg PO DAILY Not taken while in hosp. May resume at home as directed. [vitamin b 6] 1,000 Mg PO PRN Not given while in hosp. May resume at home as directed. MA Y RESUME WHEN READY Fish Oil ([place]-3 Fatty Acids) 300 Mg Capsule 1,200 Mg PO DAILY NOT GIVEN IN THE HOSPITAL MAY RESUME WHEN HOME DIRECTED Glimepiride 1 Mg Tablet 2 Mg PO BID LAST DOSE GIVEN: DATE:08-19-16 TIME:7:30 a.m. NEXT DOSE DUE: DATE:08-19-16 TIME:6:30 p.m. Metformin Hcl 1,000 Mg Tablet 1,000 Mg PO BID LAST DOSE GIVEN: DATE:08-19-16 TIME:8:30 a.m. NEXT DOSE DUE: DATE:08-19-16 TIME:5:00 p.m. Arava (Leflunomide) 20 Mg Tablet 20 Mg PO DAILY LAST DOSE THIS AM NEXT DOSE TOMORROW AM Losartan Potassium 25 Mg Tablet 25 Mg PO DAILY Not taken in hosp. due to low blood pressure may resume at home as directed. Vitals/I & O Vital Sign - Last 24 Hours 01/21/17 01/21/17 01/21/17 01/21/17 12:38 13:53 15:00 17:15 Temp 98.6 98.6 Pulse 90 Resp 16 18 18 16 B/P 137/69 Pulse Ox 96 96 95 95 O2 Delivery Nasal Cannula Room Air Room Air Nasal Cannula O2 Flow Rate 2.0 2.0 2.0 01/21/17 01/21/17 01/21/17 01/21/17 17:18 17:48 18:15 19:00 Temp 98.5 98.5 Pulse 86 Resp 16 16 16 18 B/P 150/67 Pulse Ox 95 95 95 95 O2 Delivery Nasal Cannula Nasal Cannula Nasal Cannula Room Air O2 Flow Rate 2.0 2.0 2.0 01/21/17 01/21/17 01/22/17 01/22/17 20:00 23:00 03:00 07:00 Temp 97.8 98.8 98.6 97.8 98.8 98.6 Pulse 84 91 91 Resp B/P 136/67 141/63 129/64 Pulse Ox 93 97 96 O2 Delivery Nasal Cannula Room Air Room Air Room Air O2 Flow Rate 2.0 01/22/17 01/22/17 01/22/17 08:00 09:02 11:00 Temp 98.3 98.3 Pulse 91 89 Resp 16 B/P 129/64 150/76 Pulse Ox 99 O2 Delivery Nasal Cannula Room Air O2 Flow Rate 2.0 Intake and Output 01/21/17 01/21/17 01/22/17 15:00 23:00 07:00 Intake Total 200 ml Output Total 950 ml 1500 ml Balance -950 ml -1300 ml TAYLOR SIERRA MD Jan 22, 2017 12:05
[2017-01-22] MEDS: OXYCODONE IR 5 MG TABLET. PO PRN (12:34)
--- NOTE | 2017-01-23 13:35 | PATHOLOGY ---
PATHOLOGY REPORT * * * * * * * * FINAL DIAGNOSIS: Segments of fibrocartilaginous, fibroadipose, and skeletal muscle tissue and bone, lumbar decompression: - Degenerative changes of fibrocartilaginous tissue with focal scarring, chronic inflammation, and foreign body giant cell reaction. COMMENT: There is no evidence of an acute inflammatory process or malignancy. (JPM:mgparas; d/t: 01/23/17) REPORT ELECTRONICALLY SIGNED BY: Zheng Rodriguez M.D. DATE/TIME: 01/23/2017 13:34 * * * * * * * * GROSS PATHOLOGY: Received in formalin labeled "Brittani Younger, lumbar decompression" are multiple segments of morris, rubbery, and gritty tissue admixed with bone. The specimen measures 7.2 x 6.2 x 1.0 cm in aggregate dimensions. The tissue is submitted representatively in cassette A1, following decalcification. (CAA; 01/20/2017) INITIAL CPT CODE(S): A; 41848, 06936 Professional services performed [place] [facility] [place] [address] Technical services performed by [facility] at [address] [place] [address]. SPECIMEN(S) RECEIVED: A.Lumbar decompression CLINICAL HISTORY: Lumbar stenosis PATIENT: BRITTANI YOUNGER /AGE: 1211/06/1940 (Age: 76) PATIENT #: [id number] ALT CASE #: SPECIMEN COLLECTION DATE: 01/20/2017 SPECIMEN RECEIVED DATE: 01/20/2017 [facility] - [address] [place] [address] - PHONE: [phone] * * * END OF REPORT * * *
--- NOTE | 2017-01-23 22:45 | OP ---
DATE OF SURGERY: 01/20/2017 PREOPERATIVE DIAGNOSIS: Lumbar spinal stenosis, L2-L3. POSTOPERATIVE DIAGNOSIS: Lumbar spinal stenosis, L2-L3. OPERATION PERFORMED: Lumbar laminectomy, L2-L3. STEEL DIE PRESS SET UP OPERATOR: Arturo Bonilla MD, assisted with the exposure of laminectomy as well as the closure. OPERATIVE INDICATIONS: The patient is a very pleasant 76-year-old woman who last year underwent an instrumented fusion at L3-L4, which was extended from her previous fusion at L4-L5. She began developing months after her surgeries increased back pain along with pain in the anterior thighs. On imaging studies, she was seen to have developed increased hypertrophic bone and stenosis at L2-L3. At this point, I spoke with her about treatment options and we elected to move forward with lumbar laminectomy at L2-L3. Her overall alignment was good. She understood the surgery and the risks and wished to go ahead. DESCRIPTION OF PROCEDURE: Following general endotracheal anesthesia, the patient was positioned prone on the Yeison table. Her lumbar region was prepped and draped in the standard fashion. AMEE hose and AV impulse boots were applied for DVT prophylaxis. The microscope was draped, fluoroscopy was draped and brought into field monitoring was established. Ancef 2 g was given less than 1 hour prior to initiation of surgery. Using fluoroscopic guidance, a midline incision was made in the superior aspect of her previous incision. I dissected down through the skin and subcutaneous tissue and placed self-retaining retractors exposing the L2-L3 area. I worked then down in the midline and has reflected the paraspinal muscles laterally. During this time, I could visualize the superior screws from her hardware at L3 and I was careful to avoid any trauma to this area. I brought in the microscope and the high speed air drill and rongeurs were used to trim the spinous process and then I drilled down exposing the ligamentum flavum bilaterally and across the midline and then use the 2.5 and 4 mm Kerrisons to work superiorly to decompress well into the region of the body of L2. I grasped the thickened ligamentum flavum and began to work inferiorly, was fairly densely scarred to the dura, but I worked gently and freed this up and worked inferiorly until I reached about the mid body of L3 and removed the ligament and fully decompressed the entire region. The dura was intact and I was able to work bilaterally to fully decompress the canal. At this point, then I had an excellent decompression at L2-L3. Next, I irrigated copiously with antibiotic solution. I did use small amounts of bone wax during the operation for any bone bleeding. I removed the retractor, obtained hemostasis in the muscle and then I closed the wound in layers of absorbable suture and the skin was closed with a 4-0 subcuticular stitch. The surgery went very well and the patient was taken uneventfully to recovery room in excellent condition. I was quite pleased with the surgery. TAYLOR SIERRA MD DR: ALBERT/ayleen JOB#: [id number] / [id number]
== END 2017-01-22 13:35 | disposition home or self-care (01) | DRG 517 ==
LOC: SURG 07:07 → 4 NORTH 12:07
PROVIDERS: ADMIT Neurological Surgery; ATTEND Neurological Surgery
PROC: 01NB0ZZ Release Lumbar Nerve, Open Approach (ICD-10-PCS; principal; 2017-01-20 08:30)
DX: M48.06 Spinal stenosis, lumbar region (principal); E11.9 Type 2 diabetes mellitus without complications; Z87.442 Personal history of urinary calculi; Z91.041 Radiographic dye allergy status; Z88.6 Allergy status to analgesic agent
CPT/HCPCS: 76000; 82947; 88304; 88311; J0690; J0780; J1100; J1170; J1885; J2270; J2370; J2405; J2704; J3010; J3490; J7030; J7120; 97530; J2001

== ENCOUNTER → 2017-03-10 | Outpatient (CLI) | payer MEDICARE ==
[~2017-03-10] MED LIST changes: -BUPIVAC MPF-EPI 0.5%-1:200000 30 ML VIAL. ONE; -FENTANYL PF 100 MCG/2 ML VIAL. IV PRN; -GELATIN SPONGE SIZE 100. ONE; -IV RINGERS,LACTATED 1000ML 1,000 ML IV SCH; -KETOROLAC 60 MG/2 ML SYRINGE FOR OR. ONE; -LIDOCAINE 1% 1 ML SYRINGE. ID PRN; -ONDANSETRON PF 4 MG/2 ML VIAL. IV PRN; -PROCHLORPERAZINE 10 MG/2 ML VIAL. IV PRN; -THROMBIN 20,000 UNIT SPRAY.SYRN KIT TP ONE
--- NOTE | 2017-03-10 12:09 | RAD ---
CT of the lumbar spine without contrast, 03/10/2017: History: Back pain, lumbar stenosis Noncontrast scans were obtained with multiplanar reconstructions produced. Comparison is made to a study from 11/11/2016. There are bilateral pedicle screws in place at L3, L4 and L5 attached to posterior fixation rods. There is severe narrowing of the L4-5 disc space with adjacent vertebral artery sclerosis and marginal spurring. There is a grade 1 spondylolisthesis at L4-5, unchanged. There are bubbles of gas in the soft tissues posteriorly best seen near the midline posteriorly at L2-3 and within a midline surgical wound at L1. There is moderate streaky increased density in the soft tissues at this level compatible with postsurgical change. No discrete well-defined fluid collection is seen. At L1-2 there is no significant posterior disc bulge or protrusion. The central spinal canal and neural foramina are well maintained. At and inferior to the L2-3 level the images are compromised by artifacts arising from the surgical rods and screws. There is a laminectomy defect at L2-3. The facet joints are widened or have been partially resected. The thecal sac is poorly defined. No obvious spinal stenosis is seen at this level. There does appear to be moderate bilateral foraminal encroachment. At L3-4 there is also a laminectomy defect. There is a pars defect on the left. There is moderate posterior disc bulging. The thecal sac is not clearly defined due to the artifacts. There appears to be moderate bilateral foraminal encroachment. There is a laminectomy defect at L4-5. The left facet joint appears to have been partially resected. The underlying thecal sac is not adequately delineated. The spondylolisthesis in conjunction with marginal spurring is causing considerable bony foraminal stenosis bilaterally at this level. At L5-S1 there are mild to moderate degenerative changes involving the facet joints bilaterally. There is only mild posterior disc bulging at the midline. The central spinal canal is well-preserved. There is mild bilateral foraminal narrowing. Incidental note is made of numerous bilateral renal calcifications. Moderate aortoiliac calcific plaquing is present. IMPRESSION: 1. Postsurgical changes as described above. 2. Bubbles of gas in the soft tissues posteriorly in the upper lumbar region are presumably on a postsurgical basis. 3. Unchanged extensive degenerative change and grade 1 spondylolisthesis at L4-5. 4. Additional multilevel changes as delineated above, partially obscured by artifacts emanating from the surgical screws and rods. PQRS Compliance Statement: One or more of the following individualized dose reduction techniques were utilized for this examination: 1. Automated exposure control 2. Adjustment of the mA and/or kV according to patient size 3. Use of iterative reconstruction technique
== END | disposition home or self-care (01) ==
LOC: CT 12:40
PROVIDERS: ATTEND Neurological Surgery
DX: M43.16 Spondylolisthesis, lumbar region (principal); M48.06 Spinal stenosis, lumbar region
CPT/HCPCS: 72131

== ENCOUNTER → 2017-03-27 | Outpatient (CLI) | payer MEDICARE ==
[2017-03-27] VITALS (8 sets, daily range): BP systolic 94–120; BP diastolic 53–63
[~2017-03-27] VITALS: Ht 160 cm; Wt 68.9 kg
[~2017-03-27] MED LIST changes: +LIDOCAINE 1% / SOD BICARB 8.4% 20 ML VIAL. IJ ONE; -LINA5TAB PO; +LINA5TAB4 PO; +METF-620 PO; -METF10002 PO; +MIDAZOLAM HCL/PF 2 MG/2 ML VIAL. IV ONE; +MIDAZOLAM HCL/PF 2 MG/2 ML VIAL. ONE; +fentaNYL PF VIAL 100 MCG/2 ML VIAL IV ONE; +fentaNYL PF VIAL 100 MCG/2 ML VIAL ONE
[2017-03-27 09:05] LABS: BASO # 0.1 x10^3/uL (0.0-0.2); BASO % 1 % (0-3); EOS % 1 % (0-3); HEMATOCRIT 24.8 % (36.0-47.0); HEMOGLOBIN 7.6 g/dL (12.0-15.5); LYMPH # 2.3 x10^3/uL (1.0-4.8); LYMPH % 25 % (24-48); MEAN CORPUSCULAR HEMOGLOBIN 24 pg (25-35); MEAN CORPUSCULAR HGB CONC 30 g/dL (31-37); MEAN CORPUSCULAR VOLUME 77 fL (79-100); MONO % 7 % (0-9); NEUT % 65 % (31-73); PLATELET COUNT 544 x10^3/uL (140-400); RED BLOOD COUNT 3.22 x10^6/uL (3.50-5.40); RED CELL DISTRIBUTION WIDTH 22.3 % (11.5-14.5); WHITE BLOOD COUNT 9.1 x10^3/uL (4.0-11.0)
[2017-03-27 09:14] LABS: INR 1.1 (0.8-1.1); PROTHROMBIN TIME PATIENT 13.4 SEC (11.7-14.0)
--- NOTE | 2017-03-27 11:05 | PDOC ---
MODERATE SEDATION ASSESSMENT RISKS/ALTERNATIVES Risks/Alternatives Risks and alternatives of this type of sedation and procedure discussed with: RISK/ALTERNATIVES: Patient H & P ON CHART H & P H & P on chart and reviewed for co-morbid conditions and appropriate labs. H&P ON CHART: Yes STATUS PREG STATUS ASSESSED: N/A MEDS/ALLERGIES REVIEWED Meds/Allergies Reviewed Medications and Allergies including time and route of recently administered narcotics and sedatives. MEDS/ALLERGIES REVIEWED: Yes ASA RATING ASA RATING: II AIRWAY ASSESSMENT Airway Assessment Airway patency, oral function limitations, presence of caps, crowns, dentures, partials, and ability to extend neck assessed. AIRWAY ASSESSMENT: Yes MALLAMPATI SCORE MALLAMPATI SCORE: II PRE-SEDATION ASSESSMENT PRE-SEDATION ASSESSMENT: Yes SUZANNE DYKES MD March 27, 2017 11:05
--- NOTE | 2017-03-27 11:10 | PDOC1 ---
History and Physical Date of Procedure Date of Admission 03/27/[address] guided aspiration of post-op lumbar fluid collection Indication Indication LBP. Post op fluid collection identified at CT at L2-3 level. Past Medical History Past Medical History See Nursing Pre Procedure PMH Past Surgical History Past Surgical History See Nursing Pre procedure PSH Current Medications Current Medications Current Medications Lidocaine/Sodium Bicarbonate (Buffered Lidocaine 1%) 20 ml STK-MED ONCE IJ ; Start 03/27/17 at 10:14; Stop 03/27/17 at 10:15; Status DC Midazolam HCl (Versed) 2 mg STK-MED ONCE .ROUTE ; Start 03/27/17 at 10:26; Stop 03/27/17 at 10:27; Status DC Fentanyl Citrate (Fentanyl 2ml Vial) 100 mcg STK-MED ONCE .ROUTE ; Start at 10:26; Stop 03/27/17 at 10:27; Status DC Midazolam HCl (Versed) 2 mg STK-MED ONCE .ROUTE ; Start 03/27/17 at 10:40; Stop 03/27/17 at 10:41; Status DC Fentanyl Citrate (Fentanyl 2ml Vial) 100 mcg STK-MED ONCE .ROUTE ; Start at 10:40; Stop 03/27/17 at 10:41; Status DC Lidocaine/Sodium Bicarbonate (Buffered Lidocaine 1%) 4 ml 1X ONCE IJ Last administered on 03/27/17 10:52; Start 03/27/17 at 11:00; Stop 03/27/17 at 11:01; Status DC Midazolam HCl (Versed) 3 mg 1X ONCE IV Last administered on 03/27/17 10:53; Start 03/27/17 at 11:00; Stop 03/27/17 at 11:01; Status DC Fentanyl Citrate (Fentanyl 2ml Vial) 150 mcg 1X ONCE IV Last administered on 10:52; Start 03/27/17 at 11:00; Stop 03/27/17 at 11:01; Status DC Active Scripts Active Oxycodone Hcl 10 Mg Tablet 10 Mg PO Q4-6HRS PRN Colace (Docusate Sodium) 100 Mg Capsule 100 Mg PO BID Cyclobenzaprine Hcl 10 Mg Tablet 10 Mg PO PRN TID PRN Reported Vitamin C (Ascorbic Acid) 1,000 Mg Tab.chew 1,000 Mg PO DAILY Not taken while in hosp. May resume at home as directed. Iron Supplement (Ferrous Sulfate) 325 Mg Tablet 65 Mg PO DAILY LAST DOSE THIS AM NEXT DOSE TOMORROW AM Vitamin D3 (Cholecalciferol (Vitamin D3)) 5,000 Unit Tablet 2,000 Mg PO DAILY Not taken while in hosp. May resume ast home as directed. Folic Acid 1 Mg Tablet 400 Mg PO DAILY LAST DOSE THIS AM NEXT DOSE TOMORROW AM Chromium (Chromium Amino Acid Chelate) 400 Mcg Tablet 1,000 Mcg PO DAILY Not taken while in hosp. May resume at home as directed. [vitamin b 6] 1,000 Mg PO PRN Not given while in hosp. May resume at home as directed. MA Y RESUME WHEN READY Fish Oil ([place]-3 Fatty Acids) 300 Mg Capsule 1,200 Mg PO DAILY NOT GIVEN IN THE HOSPITAL MAY RESUME WHEN HOME DIRECTED Allergies Allergies: Coded Allergies: iodine (Verified Allergy, Intermediate, 01/20/17) pain in legs codeine (Verified Adverse Reaction, Intermediate, Nausea, 01/20/17) Physical Exam Vital Signs Vital Signs Date Time Temp Pulse Resp B/P (MAP) Pulse Ox O2 Delivery O2 Flow Rate FiO2 03/27/17 10:53 83 14 100 Nasal Cannula 2.0 03/27/17 08:50 97.9 113/54 (73) 97.9 Lungs: Clear to auscultation Heart: Regular rate Psych/Mental Status: Mental status NL Other Midline mid-lower lumbar surgical scar. Diagnostic Data/Imaging Images PM[facility] CT L-spine from 03/10/17 personally reviewed. Assessment Assessment Lumbar Post-op fluid collection of ? sterility. Problems: Plan Plan CT guided aspiration of lumbar post op fluid collection for aerobic, anaerobic, Fungal, and AFB cultures. SUZANNE DYKES MD March 27, 2017 11:10
--- NOTE | 2017-03-27 11:13 | PDOC ---
Exam Mathematician Research Mathematician Research Bette Pre-Procedure Diagnosis Pre-Procedure Diagnosis LBP with lumbar post op fluid collection, of ? sterility Post-Procedure Diagnosis Post-Procedure Diagnosis Same Procedure Performed Procedure Performed CT guided needle aspiration of post op fluid collection. Type of Anesthesia Type of Anesthesia Local + Mod sedation Estimated Blood Loss EBL: Trace Specimens Specimans 2 cc whitish-cloudy complex fluid aspirated---to micro for bacterial, fungal, and AFB cultures. Condition of Patient Condition of Patient Stable. No apparent complication. Disposition Disposition Home from [facility] post recovery, if no problems. F/u with Dr Cevallos. Full report to follow. SUZANNE DYKES MD March 27, 2017 11:13
[2017-03-27 12:43] LABS: % BASOS 1 % (0-3)
[2017-03-27 12:44] LABS: ANISOCYTOSIS MOD; HYPOCHROMIA SLIGHT; PLT ESTIMATE INCREASED (ADEQUATE)
--- NOTE | 2017-03-28 06:44 | RAD ---
CT-guided aspiration of lumbar postoperative fluid collection Indication: 76-year-old female with low back pain, and with a small postoperative gas-containing complex fluid collection at the L2-3 level. Image guided aspiration has been requested by neurosurgery. Anesthesia: 20 minutes moderate sedation was provided utilizing a total of 3 mg Versed and 150 mcg fentanyl, IV. The patient was appropriately monitored by a qualified independent observer throughout the time of moderate sedation. Consent: The procedure was explained in its entirety to the patient and/or the patient's designated telemarketing sales representative by a member of the treatment team. This included a discussion of risks and benefits and acceptable alternatives to the procedure, as well as expected consequences of no treatment at all. Discussion of risks included, but was not limited to, those that are most frequent and those that are rare, but possibly severe or life-threatening, as well as the possibility of unforeseen complications. Procedure: Informed consent was obtained from the patient. She was placed prone on the CT scanner. Preliminary noncontrast CT images were obtained through lumbar spine. Those images revealed decompression postoperative changes extending from L3 through L5, with spinal fixation hardware at L3, L4, and L5. The small posterior gas/fluid collection at L2-3, previously demonstrated on the [facility] CT lumbar spine from 03/10/2017, was again seen. An overlying left parasagittal skin site suitable for CT-guided aspiration was selected and marked. That area was prepped and draped in usual sterile fashion. Moderate sedation was provided with IV Versed and fentanyl. Using aseptic technique, local anesthesia, and CT guidance, a 19-gauge needle was successfully introduced into the small postoperative fluid collection. 2 cc of whitish-cloudy complex fluid was aspirated, and was submitted to microbiology for aerobic, anaerobic, fungal, and AFB cultures. The needle was removed and a sterile dressing was applied. Patient tolerated the procedure well without apparent complication. Impression: Successful, uneventful CT-guided aspiration of lumbar postoperative complex fluid collection, as described. PQRS Compliance Statement: One or more of the following individualized dose reduction techniques was utilized for this procedure: 1. Automated exposure control. 2. Adjustment of MA and/or KV according to patient size. 3. Iterative reconstruction technique.
== END | disposition home or self-care (01) ==
LOC: INTRAD 08:23
PROVIDERS: ATTEND Neurological Surgery
DX: M54.5 Low back pain (principal); I10 Essential (primary) hypertension; E66.9 Obesity, unspecified; M19.90 Unspecified osteoarthritis, unspecified site; Z90.49 Acquired absence of other specified parts of digestive tract; E11.9 Type 2 diabetes mellitus without complications; F17.200 Nicotine dependence, unspecified, uncomplicated; Z79.01 Long term (current) use of anticoagulants
CPT/HCPCS: 10022; 36415; 77012; 85007; 85027; 85610; 87116; 87205; J2250; J3010

== ENCOUNTER → 2017-04-20 | Outpatient (CLI) | payer MEDICARE ==
[2017-03-27 11:16] VITALS: BP 94/54
[~2017-04-20] MED LIST changes: +GADOBUTROL 7.5 MMOL/7.5 ML VIAL IV ONE; -LIDOCAINE 1% / SOD BICARB 8.4% 20 ML VIAL. IJ ONE; -MIDAZOLAM HCL/PF 2 MG/2 ML VIAL. IV ONE; -MIDAZOLAM HCL/PF 2 MG/2 ML VIAL. ONE; -fentaNYL PF VIAL 100 MCG/2 ML VIAL IV ONE; -fentaNYL PF VIAL 100 MCG/2 ML VIAL ONE
--- NOTE | 2017-04-20 16:14 | RAD ---
EXAM: Lumbar spine MRI without and with contrast. HISTORY: Difficulty walking. Back pain. TECHNIQUE: Multiplanar, multisequence magnetic resonance imaging of the lumbar spine was performed prior to and following the administration of 6 cc gadavist intravenous contrast. COMPARISON: MRI dated 01/12/[address] dated 03/10/2017. FINDINGS: There is instrumented posterior spinal fusion at L3-L5. There are laminectomy changes at L2-L3, L3-L4 and L4-L5. There is a complex fluid collection within the laminectomy decompression space at L2-L3, measuring approximately 3.0 cm in maximum dimension. There is enhancing soft tissue surrounding this collection and extending into the laminectomy decompression space to efface the dorsal aspect of the thecal sac. The fluid collection is new compared to the prior study and the surrounding enhancing soft tissue within the laminectomy decompression space is stable to slightly increased compared to the prior study. There is grade 1 anterolisthesis of L3 on L4, measuring 4 mm. There is grade 1 anterolisthesis of L4 on L5, measuring 7 mm. There is 2 mm retrolisthesis of L2 on L3 and a 1 mm retrolisthesis of L1 on L2. There is severe degenerative endplate irregularity with adjacent marrow signal change and near complete loss of the disc space at L4-L5. The conus terminates at L1-L2. There is scarring within the lower poles of the kidneys. No suspicious renal lesion is seen. At L1-L2, there is a posterior annular tear. There is mild facet arthropathy. There is a 3 mm right facet joint synovial cyst projecting into the right dorsal central canal, without associated stenosis. At L2-L3, there is a disc bulge and endplate remodeling. There is severe facet arthropathy. There is hypertrophy of the ligamentum flavum. There is epidural lipomatosis. There is slight retrolisthesis. There is minimal right foraminal stenosis. There is mild to moderate central canal stenosis. At L3-L4, there is a broad-based posterior central disc protrusion with minimal superior extrusion superimposed on a disc bulge and endplate remodeling. There is severe facet arthropathy. There is grade 1 anterolisthesis. There is mild left greater than right foraminal stenosis with abutment of the exiting left L3 nerve root. There is mild central canal stenosis. At L4-L5, there is a broad-based posterior central disc protrusion with superior extrusion superimposed on a diffuse disc bulge and endplate osteophytosis. There is moderate right and severe left foraminal stenosis with effacement of the exiting L4 nerve roots. There is laminectomy decompression of the thecal sac. At L5-S1, there is mild facet arthropathy. There is no stenosis. IMPRESSION: 1. Instrumented posterior spinal fusion at L3-L5 and laminectomy decompression at L2-L5. There is a new 3.0 cm complex fluid collection within a laminectomy decompression space at L2-L3, with stable to slight decreased surrounding enhancing soft tissue resulting in slight effacement of the dorsal aspect of the thecal sac. This is likely due to scar/granulation tissue surrounding a postoperative seroma. The possibility of a superimposed infected fluid collection is not excluded. 2. Near complete loss of the disc space with severe endplate irregularity and adjacent marrow signal change at L4-L5. The interval stability favors an advanced degenerative etiology rather than discitis/osteomyelitis. The combination of degenerative endplate changes, a disc protrusion with superior extrusion and anterolisthesis results in moderate right and severe left foraminal stenosis at this level. 3. Degenerative change throughout the remainder of lumbar spine, similar compared to the prior study. This results in stenosis as described above. 4. Mild scoliosis and multilevel listhesis. Electronically signed by: Filomena Zafar MD (04/20/2017 4:11 PM)
== END | disposition home or self-care (01) ==
LOC: MRI 14:38
PROVIDERS: ATTEND Internal Medicine Infectious Disease
DX: M47.896 Other spondylosis, lumbar region (principal); M41.86 Other forms of scoliosis, lumbar region; M48.06 Spinal stenosis, lumbar region; M51.26 Other intervertebral disc displacement, lumbar region
CPT/HCPCS: 72158; A9585

== ENCOUNTER → 2017-08-22 | Outpatient (CLI) | payer MEDICARE ==
[2017-03-27 11:16] VITALS: BP 94/54
[~2017-08-22] MED LIST changes: +DOCU-109 PO; -DOCU-27 PO; -GADOBUTROL 7.5 MMOL/7.5 ML VIAL IV ONE; -HYDR-2666 PO; +HYDR-2758 PO
--- NOTE | 2017-08-22 12:02 | RAD ---
Lumbar spine, 2 views, 09/22/2017: History: Back pain Upright views were obtained and compared to a study from 07/07/2016. The previous posterior spinal fusion has been extended. There are now bilateral pedicle screws at L3, L4 and L5 attached to longitudinally oriented posterior fixation rods. There are partial laminectomy defects in this region. The L4-5 disc space is no longer visible and may be completely fused. There is mild residual anterolisthesis at L3-4 and L4-5. There is only mild spurring in the upper lumbar spine. No acute bony abnormality is detected. There is extensive aortoiliac calcific plaquing. Bilateral renal calcifications are again noted. IMPRESSION: 1. Postsurgical changes in the lower lumbar spine with mild unchanged anterolisthesis at L3-4 and L4-5. 2. No acute bony abnormality is detected. 3. Bilateral intrarenal calculi.
== END | disposition home or self-care (01) ==
LOC: RAD 11:14
PROVIDERS: ATTEND Neurological Surgery
DX: M43.16 Spondylolisthesis, lumbar region (principal); N20.0 Calculus of kidney; Z98.1 Arthrodesis status
CPT/HCPCS: 72100

== ENCOUNTER → 2017-08-30 | Outpatient (CLI) | payer MEDICARE ==
[2017-03-27 11:16] VITALS: BP 94/54
--- NOTE | 2017-08-30 19:37 | RAD ---
CT scan of the abdomen and pelvis without contrast 08/30/2017 CLINICAL HISTORY: Right flank pain. TECHNIQUE: Unenhanced, contiguous, 2 mm axial sections were obtained through the abdomen and pelvis. One or more of the following individualized dose reduction techniques were utilized for this study: 1. Automated exposure control. 2. Adjustment of the mA and/or kV according to patient size. 3. Use of iterative reconstruction technique. FINDINGS: Comparison study is dated 12/02/2013. Images through the lung bases demonstrate patchy areas of atelectasis involving both lower lobes, right greater than left. Several rounded low-attenuation lesions are seen involving both lobes of the liver. These measure 5 mm to 2.2 cm in size. They likely represent hepatic cysts. They are unchanged. The spleen, pancreas and right adrenal gland are within normal limits. Fullness of the left adrenal gland is seen, unchanged. Multiple bilateral nonobstructing renal calculi are seen which measure 2 mm to 1.4 cm in size. No ureteral calculus is seen. There is no evidence of obstruction of either collecting system. Moderate atherosclerotic calcification abdominal aorta is seen. The abdominal aorta tapers normally. Surgical clips are seen within the gallbladder fossa consistent with a cholecystectomy. No free fluid or free air is seen within the abdomen. Air and stool is seen throughout the colon. Images through the pelvis demonstrate the urinary bladder distended with urine. Calcifications are seen within the pelvis consistent with phleboliths. No free fluid is seen. Multiple diverticula are seen involving the sigmoid colon. No inflammatory changes are seen in the adjacent fat. Postsurgical changes are again seen involving the mid and lower lumbar spine. Degenerative changes are seen involving the lower thoracic and throughout the lumbar spine and both hips. IMPRESSION: Bilateral nonobstructing renal calculi. No ureteral calculus is seen. There is no evidence of obstruction of either collecting system. No acute abnormality is definitely seen. Electronically signed by: Delgado Lindquist MD (08/30/2017 7:34 PM) [facility]
== END | disposition home or self-care (01) ==
LOC: RAD 18:34
PROVIDERS: ATTEND Urology
DX: N20.0 Calculus of kidney (principal)
CPT/HCPCS: 74176

== ENCOUNTER → 2017-11-15 | Outpatient (CLI) | payer MEDICARE ==
[2017-11-06 10:01] VITALS: BP 144/94
[~2017-11-15] MED LIST changes: +ASCO500T3 PO; +FENT1PAT15 TD; +GADOBUTROL 7.5 MMOL/7.5 ML VIAL IV ONE; +GLIM2TAB2 PO; +LACT1CAP2 PO; +LORA0.5T96 PO; +METF500T4 PO; +MORP15TA3 PO; +MORP30TA3 PO; +OXYC15TA PO; +OXYC5CAP PO; +OXYC5TAB95 PO; +TIZA4TAB PO
--- NOTE | 2017-11-15 14:20 | KCIC ---
INDICATION: Prior fusions. Last surgery was in August. Treated for a postoperative infection in September. Chronic low back pain. TECHNIQUE: Sagittal T1, sagittal T2, sagittal STIR, sagittal postcontrast, axial T1, axial T2, and axial postcontrast sequences are provided. 6 mL of intravenous Gadavist was administered without complication. There is a comparison CT from September 14, 2017 and MRI from January 12, 2017. FINDINGS: There is hardware artifact from pedicle screw and kelle instrumentation on the right from L2 to L4 and on the left at L2 and L4, no screw at L3. Retrolisthesis at L2-L3 is similar to recent CT. Anterolisthesis at L4-L5 is similar to recent CT. Collapse of L2 appears increased from the recent CT, collapse anteriorly in particular is increased with the anterior vertebral body height 12 mm compared to [address] Otherwise, vertebral body height is relatively maintained. Evaluation for edema is limited given hardware artifact, edema is suspected at L2-L3. There is also likely enhancement within the L2 and L3 vertebral bodies. Loss of interspace at L2-L3 is increased from prior CT. Loss of interspace at L4-L5 appears stable. The conus medullaris is normal in signal intensity and in position. Decompression from L2-L3 through L4-L5 again is noted. Fluid collection is noted at the operative site measuring 6 x 1 x 3 cm. Canal and foraminal compromise will be estimated below: L1-L2: There is facet hypertrophy but no definite canal or foraminal compromise. L2-L3: Fever with a decompression, there is canal stenosis secondary to the retrolisthesis of L2. Midline AP diameter of the thecal sac is narrowed to 6 mm. There is probably lateral recess narrowing. Hardware artifact limits evaluation. Foraminal narrowing is probably moderate. L3-L4: Disc bulge and facet hypertrophy are noted with slight right lateral recess narrowing. There may be mild right foraminal narrowing. L4-L5: Endplate irregularity is noted in addition to the anterolisthesis. There is no canal stenosis post decompression. There is lateral recess narrowing and foraminal narrowing bilaterally. L5-S1: Disc bulge and facet hypertrophy are noted. There is fluid in the facet joints. There is mild right lateral recess narrowing. There is no canal stenosis. There is bdjl-hj-ctvowizy foraminal narrowing. IMPRESSION: 1. Further collapse of the L2 vertebral body compared to the August CT. There is edema and enhancement suspected at L2-L3, evaluation limited given hardware artifact. Appearance is suspicious for ongoing osteomyelitis and discitis. 2. Degree of retrolisthesis at L2-L3 and anterolisthesis at L4-L5 is stable. 3. Canal stenosis at L2-L3 appears similar to prior. Several levels of foraminal narrowing are suspected, as described above. Electronically signed by: Gil Goodman MD (11/15/2017 2:16 PM) [email or web address]
== END | disposition home or self-care (01) ==
LOC: KCIC MRI 11:33
PROVIDERS: ATTEND Neurological Surgery
DX: M48.061 Spinal stenosis, lumbar region without neurogenic claudication (principal); M47.816 Spondylosis without myelopathy or radiculopathy, lumbar region; M43.16 Spondylolisthesis, lumbar region; Z98.1 Arthrodesis status
CPT/HCPCS: 72158; A9585

== ENCOUNTER 2017-11-29 11:55 | Emergency (ER) | payer MEDICARE ==
[2017-11-29 13:03] LABS: ADD MAN DIFF? NO
[2017-11-29 13:11] LABS: BASO # 0.1 x10^3/uL (0.0-0.2); BASO % 2 % (0-3); EOS # 0.1 x10^3/uL (0.0-0.7); EOS % 2 % (0-3); HEMATOCRIT 31.4 % (36.0-47.0); HEMOGLOBIN 9.7 g/dL (12.0-15.5); LYMPH # 1.1 x10^3/uL (1.0-4.8); LYMPH % 17 % (24-48); MEAN CORPUSCULAR HEMOGLOBIN 26 pg (25-35); MEAN CORPUSCULAR HGB CONC 31 g/dL (31-37); MEAN CORPUSCULAR VOLUME 84 fL (79-100); MONO # 0.5 x10^3/uL (0.0-1.1); MONO % 8 % (0-9); NEUT # 4.7 x10^3uL (1.8-7.7); NEUT % 72 % (31-73); PLATELET COUNT 384 x10^3/uL (140-400); RED BLOOD COUNT 3.75 x10^6/uL (3.50-5.40); RED CELL DISTRIBUTION WIDTH 19.6 % (11.5-14.5); WHITE BLOOD COUNT 6.6 x10^3/uL (4.0-11.0)
[2017-11-29 13:19] LABS: ANION GAP 11 (6-14); BLOOD UREA NITROGEN 12 mg/dL (7-20); CALCIUM 9.9 mg/dL (8.5-10.1); CARBON DIOXIDE 27 mmol/L (21-32); CHLORIDE 102 mmol/L (98-107); CREATININE 0.8 mg/dL (0.6-1.0); GFR 84.6; GLUCOSE 176 mg/dL (70-99); POTASSIUM 3.9 mmol/L (3.5-5.1); SODIUM 140 mmol/L (136-145)
[2017-11-29 13:25] LABS: ALBUMIN 3.1 g/dL (3.4-5.0); ALK PHOS 64 U/L (46-116); ALT (SGPT) 14 U/L (14-59); AST (SGOT) 18 U/L (15-37); DIRECT BILIRUBIN 0.1 mg/dL (0.0-0.2); MAGNESIUM 1.8 mg/dL (1.8-2.4); TOTAL BILIRUBIN 0.2 mg/dL (0.2-1.0); TOTAL PROTEIN 7.6 g/dL (6.4-8.2)
[2017-11-29 13:30] LABS: TROPONINI < 0.017 ng/mL (0.000-0.055)
[2017-11-29 13:32] LABS: NT-PRO BNP 6277 pg/mL (0-449)
[2017-11-29 13:32] LABS: CKMB MASS 0.5 ng/mL (0.0-3.6); CREATINE KINASE 40 U/L (26-192)
[2017-11-29 13:33] LABS: THYROID STIM HORMONE (TSH) 2.003 uIU/mL (0.358-3.74)
[2017-11-29 14:28] LABS: BILIRUBIN,URINE NEGATIVE (NEG); CLARITY,URINE CLEAR; COLOR,URINE YELLOW; GLUCOSE,URINE NEGATIVE (NEG); NITRITE,URINE NEGATIVE (NEG); PROTEIN,URINE NEGATIVE (NEG-TRACE); UROBILINOGEN,URINE 0.2 mg/dL (0.2 mg/dL)
[2017-11-29 14:37] LABS: BACTERIA,URINE FEW /HPF (0-FEW); RBC,URINE 0 /HPF (0-2); SQUAMOUS EPITHELIAL CELL,UR MOD /LPF
== END 2017-11-29 15:28 | disposition home or self-care (01) ==
LOC: ER 11:55
DX: R60.0 Localized edema (principal); I10 Essential (primary) hypertension; E11.9 Type 2 diabetes mellitus without complications; Z87.442 Personal history of urinary calculi; Z90.49 Acquired absence of other specified parts of digestive tract; Z90.710 Acquired absence of both cervix and uterus; Z88.5 Allergy status to narcotic agent; Z91.041 Radiographic dye allergy status
CPT/HCPCS: 36415; 71045; 80048; 80076; 81001; 82553; 83735; 83880; 84443; 84484; 85025; 87086; 93005; 93971; 99285-25

== ENCOUNTER 2017-12-16 23:52 | Inpatient (IN) | payer MEDICARE ==
[2017-12-17 00:49] LABS: INFLUENZA A PATIENT NEGATIVE (NEGATIVE); INFLUENZA B PATIENT NEGATIVE (NEGATIVE); OBC FLU VALID
[2017-12-17 00:59] LABS: ADD MAN DIFF? NO; BASO # 0.1 x10^3/uL (0.0-0.2); BASO % 1 % (0-3); EOS # 0.1 x10^3/uL (0.0-0.7); EOS % 1 % (0-3); HEMATOCRIT 35.6 % (36.0-47.0); HEMOGLOBIN 11.1 g/dL (12.0-15.5); LYMPH # 1.2 x10^3/uL (1.0-4.8); LYMPH % 14 % (24-48); MEAN CORPUSCULAR HEMOGLOBIN 27 pg (25-35); MEAN CORPUSCULAR HGB CONC 31 g/dL (31-37); MEAN CORPUSCULAR VOLUME 86 fL (79-100); MONO # 0.3 x10^3/uL (0.0-1.1); MONO % 4 % (0-9); NEUT # 7.2 x10^3uL (1.8-7.7); NEUT % 81 % (31-73); PLATELET COUNT 432 x10^3/uL (140-400); RED BLOOD COUNT 4.16 x10^6/uL (3.50-5.40); RED CELL DISTRIBUTION WIDTH 18.6 % (11.5-14.5); WHITE BLOOD COUNT 8.9 x10^3/uL (4.0-11.0)
[2017-12-17] MEDS ORDERED: PIP/TAZO PER PHARMACY MC (01:00)
[2017-12-17 01:19] LABS: ANION GAP 10 (6-14); BLOOD UREA NITROGEN 13 mg/dL (7-20); BUN/CREATININE RATIO 13 (6-20); CARBON DIOXIDE 27 mmol/L (21-32); CHLORIDE 100 mmol/L (98-107); GFR 65.4; GLUCOSE 277 mg/dL (70-99); POTASSIUM 3.9 mmol/L (3.5-5.1); SODIUM 137 mmol/L (136-145)
[2017-12-17 01:20] LABS: BILIRUBIN,URINE NEGATIVE (NEG); CLARITY,URINE CLEAR; COLOR,URINE YELLOW; GLUCOSE,URINE NEGATIVE (NEG); NITRITE,URINE NEGATIVE (NEG); PROTEIN,URINE 30 mg/dL (NEG-TRACE); UROBILINOGEN,URINE 0.2 mg/dL (0.2 mg/dL)
[2017-12-17 01:25] LABS: ALBUMIN 3.3 g/dL (3.4-5.0); ALBUMIN/GLOBULIN RATIO 0.7 (1.0-1.7); ALK PHOS 71 U/L (46-116); ALT (SGPT) 17 U/L (14-59); AST (SGOT) 22 U/L (15-37); TOTAL BILIRUBIN 0.2 mg/dL (0.2-1.0); TOTAL PROTEIN 7.8 g/dL (6.4-8.2)
[2017-12-17 01:27] LABS: TROPONINI 0.031 ng/mL (0.000-0.055)
[2017-12-17] MEDS ORDERED: fentaNYL PF VIAL 100 MCG/2 ML VIAL IV (01:30)
[2017-12-17] MEDS ORDERED: ONDANSETRON PF 4 MG/2 ML VIAL. IV (01:30)
[2017-12-17 01:31] LABS: NT-PRO BNP 8721 pg/mL (0-449)
[2017-12-17] MEDS: IV NORMAL SALINE 1000ML BAG 1,000 ML IV ×3 (01:31→09:05)
[2017-12-17] MEDS: PIPERACILLIN/TAZOBACTAM 3.375 GM in IV NORMAL SALINE 50ML 50 ML IV ×5 (01:31→23:35)
[2017-12-17 01:53] LABS: BACTERIA,URINE FEW /HPF (0-FEW); RBC,URINE OCC /HPF (0-2); SQUAMOUS EPITHELIAL CELL,UR FEW /LPF; WBC,URINE OCC /HPF (0-4)
[2017-12-17 01:54] LABS: AMORPHOUS SEDIMENT,UR PRESENT /HPF; HYALINE CASTS, URINE MODERATE /HPF
[2017-12-17] MEDS: VANCOMYCIN 1.5 GM in IV DEXTROSE 5 %-0.2 % NACL 500 ML IV (02:22)
[2017-12-17] MEDS: VANCOMYCIN PER PHARMACY MC ×2 (02:25→02:27)
[2017-12-17 05:45] LABS: LACTIC ACID 1.7 mmol/L (0.4-2.0)
[2017-12-17 08:43] LABS: POC GLUCOSE 89 mg/dL (70-99)
[2017-12-17] MEDS: LACTOBACILLUS RHAMNOSUS GG 1 CAPSULE. PO ×2 (08:57→20:28)
[2017-12-17] MEDS: FUROSEMIDE 40 MG/4 ML VIAL. IVP (09:18)
[2017-12-17] MEDS ORDERED: DEXTROSE 50% 25 GM / 50ML DISP.SYRIN. IV (10:00)
[2017-12-17] MEDS: FERROUS SULFATE 325 MG TABLET. PO (10:35)
[2017-12-17] MEDS: OMEGA-3 FATTY ACIDS/FISH OIL 1,000 MG CAPSULE. PO (10:35)
[2017-12-17] MEDS: LOSARTAN POTASSIUM 25 MG TABLET. PO (10:35)
[2017-12-17] MEDS: FOLIC ACID 1 MG TABLET. PO (10:35)
[2017-12-17] MEDS: ASCORBIC ACID 500 MG TABLET PO ×2 (10:36→20:28)
[2017-12-17] MEDS: DOCUSATE SODIUM 100 MG CAPSULE. PO ×2 (10:36→20:27)
[2017-12-17] MEDS: INSULIN ASPART 300 UNITS/3 ML INSULN.PEN SQ ×2 (12:00→17:00)
[2017-12-17 12:43] LABS: POC GLUCOSE 116 mg/dL (70-99)
[2017-12-17] MEDS: oxyCODONE/APAP 7.5/325 1 TAB TABLET PO ×2 (12:47→20:27)
[2017-12-17] MEDS: tiZANidine 4 MG TABLET. PO ×2 (15:27→20:28)
[2017-12-17 17:11] LABS: MRSA BY PCR Negative (Negative)
[2017-12-17 17:58] LABS: POC GLUCOSE 100 mg/dL (70-99)
[2017-12-17] MEDS: LORazepam 0.5 MG TABLET PO (20:27)
[2017-12-17] MEDS ORDERED: LACTOBACILLUS RHAMNOSUS GG 1 CAPSULE. PO (21:00)
[2017-12-17 21:53] LABS: POC GLUCOSE 143 mg/dL (70-99)
[2017-12-18] MEDS: oxyCODONE/APAP 7.5/325 1 TAB TABLET PO ×2 (01:42→17:04)
[2017-12-18] MEDS: VANCOMYCIN 1 GM in IV DEXTROSE 5% 250 ML IV (01:43)
[2017-12-18] MEDS: LORazepam 0.5 MG TABLET PO (04:38)
[2017-12-18 04:51] LABS: ADD MAN DIFF? NO
[2017-12-18 05:01] LABS: BASO # 0.1 x10^3/uL (0.0-0.2); BASO % 2 % (0-3); EOS # 0.2 x10^3/uL (0.0-0.7); EOS % 3 % (0-3); HEMATOCRIT 31.1 % (36.0-47.0); HEMOGLOBIN 9.5 g/dL (12.0-15.5); LYMPH # 1.2 x10^3/uL (1.0-4.8); LYMPH % 22 % (24-48); MEAN CORPUSCULAR HEMOGLOBIN 26 pg (25-35); MEAN CORPUSCULAR HGB CONC 31 g/dL (31-37); MEAN CORPUSCULAR VOLUME 86 fL (79-100); MONO # 0.4 x10^3/uL (0.0-1.1); MONO % 7 % (0-9); NEUT # 3.6 x10^3uL (1.8-7.7); NEUT % 66 % (31-73); PLATELET COUNT 337 x10^3/uL (140-400); RED BLOOD COUNT 3.63 x10^6/uL (3.50-5.40); RED CELL DISTRIBUTION WIDTH 18.5 % (11.5-14.5); WHITE BLOOD COUNT 5.4 x10^3/uL (4.0-11.0)
[2017-12-18 05:20] LABS: ALBUMIN 2.7 g/dL (3.4-5.0); ALBUMIN/GLOBULIN RATIO 0.6 (1.0-1.7); ALK PHOS 53 U/L (46-116); ALT (SGPT) 14 U/L (14-59); ANION GAP 5 (6-14); AST (SGOT) 18 U/L (15-37); BLOOD UREA NITROGEN 12 mg/dL (7-20); BUN/CREATININE RATIO 12 (6-20); CALCIUM 9.9 mg/dL (8.5-10.1); CARBON DIOXIDE 30 mmol/L (21-32); CHLORIDE 104 mmol/L (98-107); GFR 65.4; GLUCOSE 118 mg/dL (70-99); POTASSIUM 3.6 mmol/L (3.5-5.1); SODIUM 139 mmol/L (136-145); TOTAL BILIRUBIN 0.2 mg/dL (0.2-1.0); TOTAL PROTEIN 6.9 g/dL (6.4-8.2)
[2017-12-18] MEDS: PIPERACILLIN/TAZOBACTAM 3.375 GM in IV NORMAL SALINE 50ML 50 ML IV ×3 (05:40→18:04)
[2017-12-18] MEDS: INSULIN ASPART 300 UNITS/3 ML INSULN.PEN SQ ×3 (08:00→17:00)
[2017-12-18 08:18] LABS: POC GLUCOSE 92 mg/dL (70-99)
[2017-12-18] MEDS: LACTOBACILLUS RHAMNOSUS GG 1 CAPSULE. PO ×2 (09:46→20:07)
[2017-12-18] MEDS: LOSARTAN POTASSIUM 25 MG TABLET. PO (09:46)
[2017-12-18] MEDS: OMEGA-3 FATTY ACIDS/FISH OIL 1,000 MG CAPSULE. PO (09:46)
[2017-12-18] MEDS: oxyCODONE IR 5 MG TABLET PO (09:46)
[2017-12-18] MEDS: tiZANidine 4 MG TABLET. PO ×3 (09:46→20:07)
[2017-12-18] MEDS: FERROUS SULFATE 325 MG TABLET. PO (09:46)
[2017-12-18] MEDS: FOLIC ACID 1 MG TABLET. PO (09:47)
[2017-12-18] MEDS: DOCUSATE SODIUM 100 MG CAPSULE. PO ×2 (09:47→20:07)
[2017-12-18] MEDS: ASCORBIC ACID 500 MG TABLET PO ×2 (09:47→20:07)
[2017-12-18] MEDS: VANCOMYCIN PER PHARMACY MC (10:31)
[2017-12-18 11:48] LABS: POC GLUCOSE 114 mg/dL (70-99)
[2017-12-18] MEDS: diphenhydrAMINE 50 MG/ML VIAL IVP (14:30)
[2017-12-18] MEDS: FAMOTIDINE 20 MG/2 ML VIAL IVP (14:30)
[2017-12-18] MEDS: HEPARIN for IV BOLUS 10,000 UNIT/10 ML VIAL. IART (14:30)
[2017-12-18] MEDS: NITROGLYCERIN 200 MCG/2 ML SYRINGE FOR CATH/VASC LAB. IART (14:30)
[2017-12-18] MEDS: MIDAZOLAM HCL/PF 2 MG/2 ML VIAL. IV (14:30)
[2017-12-18] MEDS: fentaNYL PF VIAL 100 MCG/2 ML VIAL IV (14:30)
[2017-12-18] MEDS: VERAPAMIL 5 MG/2 ML VIAL. IART (14:30)
[2017-12-18] MEDS: methylPREDNISolone SOD SUCC PF 125 MG/2 ML VIAL. IV (14:30)
[2017-12-18] MEDS: IODIXANOL 320 MG/ML 100 ML VIAL. IART (14:30)
[2017-12-18 18:24] LABS: POC GLUCOSE 125 mg/dL (70-99)
[2017-12-18 20:38] LABS: POC GLUCOSE 184 mg/dL (70-99)
[2017-12-19] MEDS: LORazepam 0.5 MG TABLET PO ×3 (00:29→23:12)
[2017-12-19 02:21] LABS: VANC TR 9.2 mcg/mL (10.0-20.0)
[2017-12-19] MEDS: VANCOMYCIN 1 GM in IV DEXTROSE 5% 250 ML IV (02:34)
[2017-12-19] MEDS: VANCOMYCIN 500 MG in IV DEXTROSE 5% 100 ML IV (03:45)
[2017-12-19] MEDS: VANCOMYCIN PER PHARMACY MC (03:46)
[2017-12-19] MEDS: PIPERACILLIN/TAZOBACTAM 3.375 GM in IV NORMAL SALINE 50ML 50 ML IV ×3 (05:54→12:53)
[2017-12-19] MEDS: INSULIN ASPART 300 UNITS/3 ML INSULN.PEN SQ ×3 (08:00→17:00)
[2017-12-19] MEDS: tiZANidine 4 MG TABLET. PO ×3 (08:29→20:00)
[2017-12-19] MEDS: OMEGA-3 FATTY ACIDS/FISH OIL 1,000 MG CAPSULE. PO (08:29)
[2017-12-19] MEDS: DOCUSATE SODIUM 100 MG CAPSULE. PO ×2 (08:29→20:00)
[2017-12-19] MEDS: LACTOBACILLUS RHAMNOSUS GG 1 CAPSULE. PO ×2 (08:29→20:00)
[2017-12-19] MEDS: FOLIC ACID 1 MG TABLET. PO (08:29)
[2017-12-19] MEDS: FERROUS SULFATE 325 MG TABLET. PO (08:30)
[2017-12-19] MEDS: oxyCODONE/APAP 7.5/325 1 TAB TABLET PO ×3 (08:30→20:47)
[2017-12-19] MEDS: LOSARTAN POTASSIUM 25 MG TABLET. PO (08:34)
[2017-12-19 08:36] LABS: POC GLUCOSE 116 mg/dL (70-99)
[2017-12-19 12:32] LABS: POC GLUCOSE 141 mg/dL (70-99)
[2017-12-19] MEDS: ASCORBIC ACID 500 MG TABLET PO ×2 (12:53→20:00)
[2017-12-19 14:53] LABS: CHOLESTEROL 133 mg/dL (0-200); CHOLESTEROL/HDL RATIO 2.1; HDLC 64 mg/dL (40-60); LDLC 59 mg/dL (0-100); NON-HDL CHOLESTEROL 69 mg/dL (0-129); TRIGLYCERIDES 48 mg/dL (0-150); VLDLC 10 mg/dL (0-40)
[2017-12-19 16:09] LABS: HEMATOCRIT 33.2 % (36.0-47.0); HEMOGLOBIN 10.6 g/dL (12.0-15.5); MEAN CORPUSCULAR HEMOGLOBIN 27 pg (25-35); MEAN CORPUSCULAR HGB CONC 32 g/dL (31-37); MEAN CORPUSCULAR VOLUME 85 fL (79-100); PLATELET COUNT 421 x10^3/uL (140-400); RED BLOOD COUNT 3.92 x10^6/uL (3.50-5.40); RED CELL DISTRIBUTION WIDTH 18.2 % (11.5-14.5); WHITE BLOOD COUNT 10.7 x10^3/uL (4.0-11.0)
[2017-12-19] MEDS: ASPIRIN ENTERIC COATED 81 MG TABLET.DR. PO (16:11)
[2017-12-19] MEDS: CARVEDILOL 3.125 MG TABLET. PO (16:11)
[2017-12-19 16:25] LABS: MAGNESIUM 1.7 mg/dL (1.8-2.4)
[2017-12-19 16:25] LABS: ANION GAP 11 (6-14); BLOOD UREA NITROGEN 13 mg/dL (7-20); CALCIUM 10.4 mg/dL (8.5-10.1); CARBON DIOXIDE 27 mmol/L (21-32); CHLORIDE 103 mmol/L (98-107); CREATININE 1.1 mg/dL (0.6-1.0); GFR 58.6; GLUCOSE 145 mg/dL (70-99); POTASSIUM 3.9 mmol/L (3.5-5.1); SODIUM 141 mmol/L (136-145)
[2017-12-19 16:39] LABS: THYROID STIM HORMONE (TSH) 1.648 uIU/mL (0.358-3.74)
[2017-12-19 17:23] LABS: POC GLUCOSE 131 mg/dL (70-99)
[2017-12-19 21:29] LABS: POC GLUCOSE 180 mg/dL (70-99)
[2017-12-20] MEDS: oxyCODONE/APAP 7.5/325 1 TAB TABLET PO ×3 (01:30→13:25)
[2017-12-20] MEDS ORDERED: VANCOMYCIN 1.5 GM in IV DEXTROSE 5 %-0.2 % NACL 500 ML IV (02:30)
[2017-12-20 05:52] LABS: ADD MAN DIFF? NO
[2017-12-20 05:55] LABS: BASO # 0.1 x10^3/uL (0.0-0.2); BASO % 1 % (0-3); EOS # 0.2 x10^3/uL (0.0-0.7); EOS % 3 % (0-3); HEMATOCRIT 33.3 % (36.0-47.0); HEMOGLOBIN 10.2 g/dL (12.0-15.5); LYMPH # 1.3 x10^3/uL (1.0-4.8); LYMPH % 17 % (24-48); MEAN CORPUSCULAR HEMOGLOBIN 26 pg (25-35); MEAN CORPUSCULAR HGB CONC 31 g/dL (31-37); MEAN CORPUSCULAR VOLUME 85 fL (79-100); MONO # 0.4 x10^3/uL (0.0-1.1); MONO % 6 % (0-9); NEUT # 5.5 x10^3uL (1.8-7.7); NEUT % 73 % (31-73); PLATELET COUNT 399 x10^3/uL (140-400); RED BLOOD COUNT 3.92 x10^6/uL (3.50-5.40); RED CELL DISTRIBUTION WIDTH 18.1 % (11.5-14.5); WHITE BLOOD COUNT 7.5 x10^3/uL (4.0-11.0)
[2017-12-20 06:29] LABS: ANION GAP 10 (6-14); BLOOD UREA NITROGEN 11 mg/dL (7-20); CALCIUM 10.3 mg/dL (8.5-10.1); CARBON DIOXIDE 26 mmol/L (21-32); CHLORIDE 105 mmol/L (98-107); CREATININE 0.9 mg/dL (0.6-1.0); GFR 73.9; GLUCOSE 134 mg/dL (70-99); POTASSIUM 4.1 mmol/L (3.5-5.1); SODIUM 141 mmol/L (136-145)
[2017-12-20] MEDS: LORazepam 0.5 MG TABLET PO (07:37)
[2017-12-20] MEDS: tiZANidine 4 MG TABLET. PO ×2 (07:37→13:25)
[2017-12-20] MEDS: INSULIN ASPART 300 UNITS/3 ML INSULN.PEN SQ ×2 (08:00→12:00)
[2017-12-20] MEDS: ASPIRIN ENTERIC COATED 81 MG TABLET.DR. PO (08:01)
[2017-12-20] MEDS: LOSARTAN POTASSIUM 25 MG TABLET. PO (08:01)
[2017-12-20] MEDS: FOLIC ACID 1 MG TABLET. PO (08:01)
[2017-12-20] MEDS: OMEGA-3 FATTY ACIDS/FISH OIL 1,000 MG CAPSULE. PO (08:02)
[2017-12-20] MEDS: POTASSIUM CHLORIDE 20 MEQ TABLET.ER. PO (08:02)
[2017-12-20] MEDS: ASCORBIC ACID 500 MG TABLET PO (08:02)
[2017-12-20] MEDS: FERROUS SULFATE 325 MG TABLET. PO (08:02)
[2017-12-20] MEDS: DOCUSATE SODIUM 100 MG CAPSULE. PO (08:02)
[2017-12-20] MEDS: LACTOBACILLUS RHAMNOSUS GG 1 CAPSULE. PO (08:02)
[2017-12-20] MEDS: CARVEDILOL 3.125 MG TABLET. PO (08:02)
[2017-12-20] MEDS: FUROSEMIDE 40 MG TABLET. PO (08:06)
[2017-12-20 08:58] LABS: MAGNESIUM 1.9 mg/dL (1.8-2.4)
[2017-12-20] MEDS ORDERED: fentaNYL 25MCG/HR PATCH 1 PATCH PATCH.TD72 TD (09:00)
[2017-12-20 12:29] LABS: POC GLUCOSE 141 mg/dL (70-99)
[2017-12-20 16:52] LABS: POC GLUCOSE 126 mg/dL (70-99)
== END 2017-12-20 14:30 | disposition home health service (06) | DRG 871 ==
LOC: ER 23:52 → 2 SOUTH 12-18 15:11 → 1 WEST ICU 12-17 01:15 → 6 SOUTH 12-17 18:41
PROC: 5A09357 Assistance with Respiratory Ventilation, Less than 24 Consecutive Hours, Continuous Positive Airway Pressure (ICD-10-PCS; 2017-12-17)
PROC: B2111ZZ Fluoroscopy of Multiple Coronary Arteries using Low Osmolar Contrast (ICD-10-PCS; principal; 2017-12-19)
PROC: B2151ZZ Fluoroscopy of Left Heart using Low Osmolar Contrast (ICD-10-PCS; 2017-12-19)
PROC: 4A023N7 Measurement of Cardiac Sampling and Pressure, Left Heart, Percutaneous Approach (ICD-10-PCS; 2017-12-19)
DX: A41.9 Sepsis, unspecified organism (principal); J18.9 Pneumonia, unspecified organism; J96.01 Acute respiratory failure with hypoxia; I50.43 Acute on chronic combined systolic (congestive) and diastolic (congestive) heart failure; I42.9 Cardiomyopathy, unspecified; E44.1 Mild protein-calorie malnutrition; I11.0 Hypertensive heart disease with heart failure; E11.51 Type 2 diabetes mellitus with diabetic peripheral angiopathy without gangrene; J44.0 Chronic obstructive pulmonary disease with (acute) lower respiratory infection; J44.1 Chronic obstructive pulmonary disease with (acute) exacerbation; Z68.23 Body mass index [BMI] 23.0-23.9, adult; F17.200 Nicotine dependence, unspecified, uncomplicated; I25.10 Atherosclerotic heart disease of native coronary artery without angina pectoris; Z79.4 Long term (current) use of insulin; Z79.891 Long term (current) use of opiate analgesic; Z82.49 Family history of ischemic heart disease and other diseases of the circulatory system; Z83.3 Family history of diabetes mellitus; Z87.442 Personal history of urinary calculi; Z88.5 Allergy status to narcotic agent; Z90.710 Acquired absence of both cervix and uterus; G89.29 Other chronic pain; Z90.49 Acquired absence of other specified parts of digestive tract
CPT/HCPCS: 36415; 71045; 80048; 80053; 80061; 80202; 81001; 82962; 83605; 83735; 83880; 84443; 84484; 85025; 85027; 87040; 87086; 87641; 87804; 87804-59; 93005; 93306; 93308; 93458; 93925; 94618; 94660; 96374; 97161-GP; 97166-GO; 99285; 99285-25; C1769; C1892; J1200; J1644; J1815; J1940; J2250; J2543; J2930; J3010; J3370; J3490; J7030; S0028

== ENCOUNTER → 2018-01-05 | Outpatient (CLI) | payer MEDICARE | END | disposition home or self-care (01) | LOC: KCIC 10:45 | DX: M16.12 Unilateral primary osteoarthritis, left hip (principal); M06.9 Rheumatoid arthritis, unspecified; G89.29 Other chronic pain | CPT/HCPCS: 73502 ==

== ENCOUNTER → 2018-01-29 | Outpatient (CLI) | payer MEDICARE ==
[2018-01-29] MEDS: GADOBUTROL 7.5 MMOL/7.5 ML VIAL IV (12:35)
== END | disposition home or self-care (01) ==
LOC: MRI 11:05
DX: M46.26 Osteomyelitis of vertebra, lumbar region (principal); M48.061 Spinal stenosis, lumbar region without neurogenic claudication; M51.36 Other intervertebral disc degeneration, lumbar region
CPT/HCPCS: 72158; A9585

== ENCOUNTER → 2018-07-30 | Outpatient (CLI) | payer MEDICARE ==
[2017-12-20 11:00] VITALS: BP 128/92
[~2018-07-30] MED LIST changes: +AMPI3VIA IJ; +ASCO125T PO; +DIAZ2TAB PO; +FENT1PAT21 TD; -GADOBUTROL 7.5 MMOL/7.5 ML VIAL IV ONE; +IBUP100T6 PO; -LOSA25TA4 PO; +LOSA25TA5 PO; -METF-620 PO; +METF10007 PO; +METF500T16 PO; -METF500T4 PO; +MORP30TA83 PO; +POLY17PO29 PO
--- NOTE | 2018-07-30 17:16 | KCIC ---
Lumbar spine radiograph 07/30/2018 INDICATION: Low back pain status post surgery 08/2017. TECHNIQUE: PA and lateral views of the lumbar spine are provided. COMPARISON: MRI lumbar spine January 29, 2018. FINDINGS: Posterior lumbar fusion is identified from L2 through L4. Is grade 1 anterolisthesis of L4 on L5. There is significant height loss involving L2 with chronic deformity of the ventral vertebral body. This results in kyphosis centered at L1-L2. There is mild anterior wedging of T12 which is stable. Advanced degenerative disc disease identified at L4-L5. There is minimal retrolisthesis of L5 on S1. Laminectomy changes are identified at L2-L3 and L3-L4. Advanced facet arthropathy is noted. No acute fracture is visualized. IMPRESSION: Advanced degenerative changes of the lumbar spine, as detailed above. Electronically signed by: Elsy Vivas MD (07/30/2018 5:12 PM) [email or web address]
== END | disposition home or self-care (01) ==
LOC: KCIC 12:13
PROVIDERS: ATTEND Neurological Surgery
DX: M47.896 Other spondylosis, lumbar region (principal); M51.36 Other intervertebral disc degeneration, lumbar region; M12.88 Other specific arthropathies, not elsewhere classified, other specified site; I13.0 Hypertensive heart and chronic kidney disease with heart failure and stage 1 through stage 4 chronic kidney disease, or unspecified chronic kidney disease; E11.22 Type 2 diabetes mellitus with diabetic chronic kidney disease; I50.43 Acute on chronic combined systolic (congestive) and diastolic (congestive) heart failure; N18.2 Chronic kidney disease, stage 2 (mild); I25.10 Atherosclerotic heart disease of native coronary artery without angina pectoris; Z91.041 Radiographic dye allergy status; Z90.710 Acquired absence of both cervix and uterus; Z90.49 Acquired absence of other specified parts of digestive tract; Z87.442 Personal history of urinary calculi; Z88.5 Allergy status to narcotic agent; Z88.6 Allergy status to analgesic agent; Z82.49 Family history of ischemic heart disease and other diseases of the circulatory system; Z83.3 Family history of diabetes mellitus
CPT/HCPCS: 72100

== ENCOUNTER → 2018-07-30 | Outpatient (CLI) | payer MEDICARE ==
[2017-12-20 11:00] VITALS: BP 128/92
--- NOTE | 2018-07-30 17:13 | KCIC ---
History: Back pain. Renal stones. Comparison: August 25, 2015. Findings: AP view of abdomen. Bowel gas pattern is nonspecific, without evidence of obstruction. Cholecystectomy clips are present. Both renal shadows are partially obscured by bowel gas and stool. Projecting over the right renal shadow are at least 2 calcifications measuring about 12 and 9 mm. Projecting over the inferior pole of the left kidney are at least 8 calcifications ranging in size from 6 to 11 mm. Injecting over superior pole of the left kidney are calcifications measuring 6 and 13 mm. Overall burden of nephrolithiasis appears increased from previous study. Impression: Multiple bilateral nephroliths. Overall burden is thought increased from previous study. Electronically signed by: Mark Wilson MD (07/30/2018 5:09 PM) [facility]
== END | disposition home or self-care (01) ==
LOC: KCIC 12:16
PROVIDERS: ATTEND Urology
DX: N20.0 Calculus of kidney (principal); I13.0 Hypertensive heart and chronic kidney disease with heart failure and stage 1 through stage 4 chronic kidney disease, or unspecified chronic kidney disease; N18.9 Chronic kidney disease, unspecified; I50.9 Heart failure, unspecified; E11.22 Type 2 diabetes mellitus with diabetic chronic kidney disease; Z79.899 Other long term (current) drug therapy
CPT/HCPCS: 74018

== ENCOUNTER → 2019-03-12 | Outpatient (CLI) | payer MEDICARE ==
[2017-12-20 11:00] VITALS: BP 128/92
[~2019-03-12] MED LIST changes: -HYDR-2758 PO; +HYDR-2761 PO; +HYDR-3135 PO; -HYDR-963 PO; +LINA5TAB PO; -LINA5TAB4 PO; -LOSA25TA5 PO; +LOSA25TA54 PO; +OXYC5TAB4 PO; -OXYC5TAB95 PO
--- NOTE | 2019-03-12 15:50 | CARD ---
MR#: [id number] Date of Study: 03/12/2019 Ordering Physician: MARAL LE, Referring Physician: MARAL LE, Tech: Melinda Quintero IRINA APPROVED REPORT EXAM: Two-dimensional and M-mode echocardiogram with Doppler and color Doppler. Other Information Quality : Good INDICATION Non-Ischemic Cardiomyopathy 2D DIMENSIONS RVDd2.2 (2.9-3.5cm)Left Atrium(2D)2.8 (1.6-4.0cm) IVSd1.5 (0.7-1.1cm)Aortic Root(2D)3.0 (2.0-3.7cm) LVDd2.8 (3.9-5.9cm)LVOT Diameter2.5 (1.8-2.4cm) PWd1.3 (0.7-1.1cm)LVDs2.2 (2.5-4.0cm) FS (%) 30.0 %SV13.4 ml LVEF(%)60.0 (>50%) Aortic Valve AoV Peak Allen.102.7cm/sAoV VTI16.3cm AO Peak GR.4.2mmHgLVOT Peak Allen.85.1cm/s LVOT VTI 14.27cmAO Mean GR.2mmHg GULSHAN (VMAX)3.33lt6DOJ (VTI)4.17cm2 Mitral Valve MV E Cowqhktk58.7cm/sMV DECEL RIMV590gi MV A Smbnoceh49.2cm/sMV DDZ81go E/A Ratio0.6MVA (PHT)4.29cm2 TDI E/Lateral E'10.1E/Medial E'12.0 Tricuspid Valve TR P. Lgfkjswj681zm/sRAP QMZHFXQK2ulLr TR Peak Gr.10xeQvJPVL56diMw LEFT VENTRICLE The left ventricle is normal size. There is mild concentric left ventricular hypertrophy. The left ve ntricular systolic function is normal and the ejection fraction is within normal range. The Ejection Fraction is 60-65%. There is normal LV segmental wall motion. Transmitral Doppler flow pattern is Gra de I-abnormal relaxation pattern. RIGHT VENTRICLE The right ventricle is normal size. The right ventricular systolic function is normal. ATRIA The left atrium size is normal. The right atrium size is normal. The interatrial septum is intact wit h no evidence for an atrial septal defect or patent foramen ovale as noted on 2-D or Doppler imaging. AORTIC VALVE The aortic valve is calcified but opens well. Doppler and Color Flow revealed no significant aortic r egurgitation. There is no significant aortic valvular stenosis. MITRAL VALVE The mitral valve is calcified but opens well. There is no evidence of mitral valve prolapse. There is no mitral valve stenosis. Doppler and Color Flow revealed no mitral valve regurgitation noted. TRICUSPID VALVE The tricuspid valve is normal in structure and function. Doppler and Color Flow revealed trace tricus pid regurgitation. The PA pressure was estimated at 28 mmHg. There is no tricuspid valve stenosis. PULMONIC VALVE The pulmonic valve is not well visualized. Doppler and Color Flow revealed no pulmonic valvular regur gitation. There is no pulmonic valvular stenosis. GREAT VESSELS The aortic root is normal in size. The ascending aorta is normal in size. The IVC is normal in size a nd collapses >50% with inspiration. PERICARDIAL EFFUSION There is no evidence of significant pericardial effusion. Critical Notification Critical Value: No <Conclusion> The left ventricular systolic function is normal and the ejection fraction is within normal range. Th e Ejection Fraction is 60-65%. There is normal LV segmental wall motion. Signed by : Maral Le, Electronically Approved : 03/12/2019 15:49:47
== END | disposition home or self-care (01) ==
LOC: ECHO 13:00
PROVIDERS: ATTEND Internal Medicine Cardiovascular Disease
DX: I08.0 Rheumatic disorders of both mitral and aortic valves (principal); I11.9 Hypertensive heart disease without heart failure; I42.9 Cardiomyopathy, unspecified; Z87.891 Personal history of nicotine dependence
CPT/HCPCS: 93306

== ENCOUNTER → 2019-04-01 | Outpatient (CLI) | payer MEDICARE ==
[2017-12-20 11:00] VITALS: BP 128/92
--- NOTE | 2019-04-01 14:15 | RAD ---
CT of the abdomen and pelvis without contrast dated 04/01/2019. Comparison made to MRI lumbar spine dated 11/15/[address] of the abdomen and pelvis dated 08/30/2017. CLINICAL INDICATION: Recent renal stone removal. Follow-up exam.. TECHNIQUE: Contiguous axial imaging of the abdomen and pelvis performed without the administration of intravenous contrast. One or more of the following individualized dose reduction techniques were utilized for this examination: 1. Automated exposure control 2. Adjustment of the mA and/or kV according to patient size 3. Use of iterative reconstruction technique. FINDINGS: Images of lung bases show prominent interstitial markings at the bilateral lung bases with associated bronchiectasis and patchy peribronchial groundglass opacities. Heart size within normal limits. No pleural or pericardial effusion. Solid abdominal viscera not well evaluated in the absence of contrast material. There are multiple well-circumscribed low-density foci scattered throughout the liver, unchanged, likely cysts. Spleen is normal in size. Gallbladder surgically absent. Pancreas is unremarkable. Nodular fullness of the left adrenal gland, unchanged from prior study. No retroperitoneal or mesenteric lymphadenopathy. The abdominal aorta is normal in caliber. There is been interval placement of right ureteral stent no definite calcific stone along the course of the stent. No significant hydronephrosis. There is a large cluster of calcific stones at the lower pole of right kidney that measures up to 2.7 cm total dimension, unchanged. There are 3 calcific stones at the mid to lower pole left kidney that measure 6 mm in size or less. Mild cortical scarring at the lower pole left kidney. No left-sided ureteral stone or left-sided hydronephrosis. Unopacified GI tract normal in caliber and contour. No focal bowel wall thickening. No inflammatory stranding in the mesentery. There are scattered diverticula throughout the colon. No paracolonic inflammatory changes. Images of pelvis show mildly distended urinary bladder. No calcific bladder stone. Uterus is surgically absent. No free fluid or lymphadenopathy. Bone windows show significant retrolisthesis of L2 on L3 with resultant moderate narrowing of the central canal, similar to recent lumbar spine MRI. There is grade 1 anterolisthesis of L4 on L5, also unchanged. Multilevel spondylosis. IMPRESSION: 1. Interval placement of right ureteral stent. No evidence of hydronephrosis. 2. Bilateral nephrolithiasis. 3. Diverticulosis with no evidence of acute diverticulitis. 4. Diffuse interstitial changes at both lung bases with associated bronchiectasis. This is likely related to chronic interstitial fibrosis, although superimposed mild interstitial edema is not excluded. Electronically signed by: Mark Brewster MD (04/01/2019 2:11 PM) [facility]
== END | disposition home or self-care (01) ==
LOC: CT 13:16
PROVIDERS: ATTEND Urology
DX: N20.0 Calculus of kidney (principal); J47.9 Bronchiectasis, uncomplicated; K57.30 Diverticulosis of large intestine without perforation or abscess without bleeding; N32.89 Other specified disorders of bladder; R91.8 Other nonspecific abnormal finding of lung field; E27.8 Other specified disorders of adrenal gland; M43.16 Spondylolisthesis, lumbar region; M48.061 Spinal stenosis, lumbar region without neurogenic claudication; M47.819 Spondylosis without myelopathy or radiculopathy, site unspecified; Z98.890 Other specified postprocedural states
CPT/HCPCS: 74176

== ENCOUNTER → 2019-07-04 | Outpatient (CLI) | payer MEDICARE ==
[2017-12-20 11:00] VITALS: BP 128/92
[~2019-07-04] MED LIST changes: -TIZA4TAB PO; +TIZA4TAB2 PO
--- NOTE | 2019-07-04 16:01 | RAD ---
EXAM: CT Abdomen and Pelvis without IV contrast CLINICAL HISTORY: Flank pain, history of kidney stones. COMPARISON: 04/01/2019, 08/30/2017 TECHNIQUE: Helical CT of the abdomen and pelvis without intravenous contrast. Axial, coronal and sagittal reformatted images were generated. PQRS compliance statement - One or more of the following individualized dose reduction techniques were utilized for this study: 1. Automated exposure control 2. Adjustment of the mA and/or kV according to patient size 3. Use of iterative reconstruction technique FINDINGS: Lack of intravenous contrast limits evaluation of solid organs, vasculature, and lymph nodes. Lower chest: Patchy linear reticular opacities in the lower lobes likely scarring/chronic fibrotic changes. Coronary artery calcifications are seen. Abdomen and Pelvis: Streak artifact from the posterior spinal fusion hardware limits evaluation of the upper abdomen. Hypodense hepatic lesions are too small to accurately characterize. In general the measure fluid density, likely cystic and not significantly changed since 04/01/2019. Spleen is unremarkable. Adrenal glands are normal. Coarse calcifications at the lower poles of the kidneys. Nonobstructing renal calculi. No hydronephrosis. No definite renal lesion within the constraints of this noncontrast exam. No hydronephrosis or hydroureter. Focal thickening of the inferior bladder wall is greater than expected Moderate to large volume colonic stool content is seen. No evidence for bowel obstruction. There is mild focal fat infiltration about several colonic diverticula within the descending colon (series 4 image 49). No abdominal or pelvic lymphadenopathy. No abdominal or pelvic ascites. Aortic calcifications are seen. Bones: Degenerative changes of the spine are seen. Right greater than left SI joint degenerative changes are seen. IMPRESSION: 1. Mild focal fat infiltration is seen about a short segment of descending colonic diverticula which may be seen with acute diverticulitis. No associated loculated fluid collection. 2. No evidence for bowel obstruction. 3. Bilateral nonobstructing renal calculi as well as renal cortical scarring at the inferior pole the right kidney. No ureteral or bladder calculi. No hydronephrosis or hydroureter. Electronically signed by: Kenneth Hammer MD (07/04/2019 3:58 PM) [facility]
== END | disposition home or self-care (01) ==
LOC: CT 13:11
PROVIDERS: ATTEND Urology
DX: N20.0 Calculus of kidney (principal); K57.30 Diverticulosis of large intestine without perforation or abscess without bleeding; K76.89 Other specified diseases of liver; R91.8 Other nonspecific abnormal finding of lung field; I70.0 Atherosclerosis of aorta
CPT/HCPCS: 74176

== ENCOUNTER → 2020-06-16 | Outpatient (CLI) | payer MEDICARE ==
[2017-12-20 11:00] VITALS: BP 128/92
[~2020-06-16] MED LIST changes: -GLIM1TAB2 PO; +GLIM1TAB7 PO; -GLIM2TAB2 PO; +GLIM2TAB7 PO; +MORP-15 PO; +MORP-16 PO; -MORP15TA3 PO; -MORP30TA3 PO; -OXYC15TA PO; +OXYC15TA3 PO
--- NOTE | 2020-06-16 18:50 | RAD ---
Exam: CT of abdomen and pelvis without contrast INDICATION: Left flank pain TECHNIQUE: Sequential axial images through the abdomen and pelvis obtained without IV contrast. Sagittal and coronal reformatted images were reconstructed from the axial data and reviewed. Comparisons: 07/04/2019 FINDINGS: Heart size is normal. No pericardial effusion. There is strandy opacities at the lung bases bilaterally with mild associated groundglass opacity.. Evaluation of solid organs is limited secondary to noncontrast technique. There are numerous hypoattenuating cystic lesions in the liver which are incompletely characterized however appear stable when compared to the prior study. Spleen, pancreas and adrenals are unremarkable. Gallbladder surgically absent. No perinephric inflammation or hydronephrosis. There are are a few small nonobstructing renal calculi noted in the left kidney. There is redemonstration of cortical calcifications in the lower pole of the right kidney. Cortical calcification at the lower pole of the left kidney with a small adjacent area of stranding, likely postprocedural is seen. No ureteral calculi are identified. Bladder is distended and appears thin-walled. Uterus is absent. No abnormal adnexal mass. Few scattered diverticula are noted within the descending colon without evidence of acute diverticulitis. Appendix is not identified. No free intra-abdominal air or fluid is seen. No obstruction. Abdominal aorta has a normal course and caliber. No enlarged abdominal lymph nodes are identified. No suspicious osseous lesions or acute fractures. IMPRESSION: 1. No ureteral calculi or evidence for obstructive nephropathy. 2. Few nonobstructing left renal calculi. 3. Diverticulosis without evidence of acute diverticulitis. Exposure: One or more of the following in the visualized dose reduction techniques were utilized for this examination: 1. Automated exposure control 2. Adjustment of the MA and/or KV according to patient size 3. Use of iterative of reconstructive technique Electronically signed by: Nehal Bee MD (06/16/2020 6:47 PM) [id number]
== END | disposition home or self-care (01) ==
LOC: CT 09:51
PROVIDERS: ATTEND Urology
DX: N20.0 Calculus of kidney (principal); K76.89 Other specified diseases of liver; N32.89 Other specified disorders of bladder; K57.30 Diverticulosis of large intestine without perforation or abscess without bleeding; Z90.710 Acquired absence of both cervix and uterus; Z90.6 Acquired absence of other parts of urinary tract
CPT/HCPCS: 74176

== ENCOUNTER → 2021-05-25 | Outpatient (CLI) | payer MEDICARE ==
[2017-12-20 11:00] VITALS: BP 128/92
--- NOTE | 2021-05-25 14:16 | KCIC ---
INDICATION: Screening for osteopenia/osteoporosis. Postmenopausal evaluation. COMPARISON: None. TECHNIQUE: Bone densitometry was performed through the proximal femur. IMPRESSION: Proximal Femur: BMD: 0.77 T-Score: -1.4 Range: Osteopenic World Health Organization Criteria for Bone Density: T-Score: > -1.0: Normal Range < -1.0 to -2.5: Osteopenic Range < -2.5: Osteoporotic Range Electronically signed by: Ben Esparza MD (05/25/2021 2:14 PM) [id number]
--- NOTE | 2021-05-25 14:17 | KCIC ---
INDICATION: Screening for osteopenia/osteoporosis. Postmenopausal evaluation. COMPARISON: None. TECHNIQUE: Bone densitometry was performed through the left distal forearm IMPRESSION: Left forearm: BMD: 0.39 T-Score: -3.5 Range: Osteoporotic World Health Organization Criteria for Bone Density: T-Score: > -1.0: Normal Range < -1.0 to -2.5: Osteopenic Range < -2.5: Osteoporotic Range Electronically signed by: Ben Esparza MD (05/25/2021 2:15 PM) [id number]
== END ==
LOC: KCIC DEXA 12:24
PROVIDERS: ATTEND Family Medicine
DX: M85.88 Other specified disorders of bone density and structure, other site (principal); M81.0 Age-related osteoporosis without current pathological fracture
CPT/HCPCS: 77080; 77081

== ENCOUNTER → 2021-06-11 | Outpatient (CLI) | payer MEDICARE ==
[2017-12-20 11:00] VITALS: BP 128/92
--- NOTE | 2021-06-13 08:54 | RAD ---
AP abdomen radiograph 06/11/2021 CLINICAL HISTORY: History of renal calculi. An AP supine digital radiograph of the abdomen/pelvis was obtained. Comparison is made to a CT scan o f the abdomen and pelvis dated 06/08/2021. Pedicle screws and stabilizing rods extend from L2 to L4. S urgical clips overlie the right upper quadrant of the abdomen consistent with cholecystectomy. The ab dominal bowel gas pattern is nonobstructive. A moderate amount of stool is seen throughout the colon. Calcifications are seen within the pelvis consistent with phleboliths. Calcifications overlie both k idneys which measure 2 mm to 7 mm in size. No ureteral calculus is seen. Degenerative changes are see n involving the lumbar spine along with both hips. IMPRESSION: Bilateral renal calculi. No ureteral calculus is seen. Electronically signed by: Delgado Lindquist MD (06/13/2021 8:52 AM) [id number]
== END ==
LOC: RAD 12:55
PROVIDERS: ATTEND Urology
DX: N20.0 Calculus of kidney (principal); N94.89 Other specified conditions associated with female genital organs and menstrual cycle
CPT/HCPCS: 74018

== ENCOUNTER → 2021-09-17 | Outpatient (CLI) | payer MEDICARE ==
[2017-12-20 11:00] VITALS: BP 128/92
[~2021-09-17] MED LIST changes: +CYCL10TA19 PO; -CYCL10TA2 PO; +TIZA-75 PO; -TIZA4TAB2 PO
--- NOTE | 2021-09-19 13:49 | CARD ---
MR#: [id number] Date of Study: 09/17/2021 Ordering Physician: MARAL LE, Referring Physician: MARAL LE, Tech: Madiha Aguirre [facility] APPROVED REPORT EXAM: Two-dimensional and M-mode echocardiogram with Doppler and color Doppler. Other Information Quality : AverageHR: 101bpm Rhythm : NSR INDICATION Dyspnea 2D DIMENSIONS RVDd2.6 (2.9-3.5cm)Left Atrium(2D)2.7 (1.6-4.0cm) IVSd0.9 (0.7-1.1cm)Aortic Root(2D)3.7 (2.0-3.7cm) LVDd3.2 (3.9-5.9cm)LVOT Diameter2.1 (1.8-2.4cm) PWd1.0 (0.7-1.1cm)LVDs2.1 (2.5-4.0cm) FS (%) 35.3 %SV27.5 ml LVEF(%)66.1 (>50%) Aortic Valve AoV Peak Allen.112.0cm/sAoV VTI23.8cm AO Peak GR.5.0mmHgLVOT Peak Allen.110.4cm/s AO Mean GR.3mmHgAVA (VMAX)3.35cm2 Mitral Valve MV E Chvywveg74.2cm/sMV DECEL [id number] MV A Qgsdcfyd87.8cm/sE/A Ratio0.7 Tricuspid Valve TR P. Kpmkcpxf645xq/sTR Peak Gr.27mmHg LEFT VENTRICLE The left ventricle is normal size. There is mild concentric left ventricular hypertrophy. The left ve ntricular systolic function is normal and the ejection fraction is within normal range. LV ejection f raction of 60-65%. There is normal LV segmental wall motion. Transmitral Doppler flow pattern is Grad e I-abnormal relaxation pattern. RIGHT VENTRICLE The right ventricle is normal size. There is normal right ventricular wall thickness. The right ventr icular systolic function is normal. ATRIA The left atrium size is normal. The right atrium size is normal. The interatrial septum is intact wit h no evidence for an atrial septal defect or patent foramen ovale as noted on 2-D or Doppler imaging. AORTIC VALVE The aortic valve is normal in structure and function. Doppler and Color Flow revealed no significant aortic regurgitation. There is no significant aortic valvular stenosis. MITRAL VALVE The mitral valve is normal in structure and function. There is no evidence of mitral valve prolapse. There is no mitral valve stenosis. Doppler and Color Flow revealed trace mitral valve regurgitation. TRICUSPID VALVE The tricuspid valve is normal in structure and function. Doppler and Color Flow revealed mild tricusp id regurgitation. Estimated PAP 30 mmHg. There is no tricuspid valve stenosis. PULMONIC VALVE Doppler and Color Flow revealed no pulmonic valvular regurgitation. GREAT VESSELS The aortic root is normal in size. The ascending aorta is normal in size. The IVC is normal in size a nd collapses >50% with inspiration. PERICARDIAL EFFUSION There is no evidence of significant pericardial effusion. Critical Notification Critical Value: No <Conclusion> The left ventricle is normal size. The left ventricular systolic function is normal and the ejection fraction is within normal range. LV ejection fraction of 60-65%. There is mild concentric left ventricular hypertrophy. Doppler and Color Flow revealed no significant aortic regurgitation. There is no significant aortic valvular stenosis. Doppler and Color Flow revealed trace mitral valve regurgitation. Doppler and Color Flow revealed mild tricuspid regurgitation. Estimated PAP 30 mmHg. Signed by : Steven Byrnes MD Electronically Approved : 09/19/2021 13:48:59
== END ==
LOC: ECHO 12:58
PROVIDERS: ATTEND Internal Medicine Cardiovascular Disease
DX: I07.1 Rheumatic tricuspid insufficiency (principal); I42.9 Cardiomyopathy, unspecified; R06.00 Dyspnea, unspecified
CPT/HCPCS: 93306

== ENCOUNTER → 2021-10-21 | Outpatient (CLI) | payer MEDICARE ==
[2017-12-20 11:00] VITALS: BP 128/92
--- NOTE | 2021-10-21 17:05 | RAD ---
EXAM: Supine AP view of the abdomen DATE: 10/21/2021 1:36 PM INDICATION: CALCULUS OF KIDNEY COMPARISON: No Prior FINDINGS: No abnormal small or large bowel dilatation. Moderate colonic stool content. No abnormal soft tissu e mass effect. Calcifications are seen projecting over the expected left renal fossa and lower right renal fossa may represent renal calculi, in general similar to 06/11/2021. CT is more sensitive. Eval uation for free intraperitoneal gas is limited on this supine exam. Spinal fusion hardware. Chronic l eft 12th rib changes. IMPRESSION: 1. No evidence for bowel obstruction. 2. Calcifications are seen projecting over the expected left renal fossa and lower right renal fossa may represent renal calculi, in general similar to 06/11/2021. CT is more sensitive. Electronically signed by: Kenneth Hammer MD (10/21/2021 5:03 PM) [id number]
== END ==
LOC: RAD 13:19
PROVIDERS: ATTEND Urology
DX: N20.0 Calculus of kidney (principal)
CPT/HCPCS: 74018